=== PATIENT | male | born 1940 | race Caucasian/White ===

== ENCOUNTER 2017-04-07 20:51 | Inpatient (IN) | payer MEDICARE, OTHER ==
[~2017-04-07] VITALS: Ht 172.7 cm; Wt 95.3 kg
[2017-04-07 21:18] LABS: BASO # 0.1 x10^3/uL (0.0-0.2); BASO % 1 % (0-3); EOS % 1 % (0-3); HEMATOCRIT 44.7 % (39.0-53.0); HEMOGLOBIN 15.2 g/dL (13.0-17.5); LYMPH % 24 % (24-48); MEAN CORPUSCULAR HEMOGLOBIN 32 pg (25-35); MEAN CORPUSCULAR HGB CONC 34 g/dL (31-37); MEAN CORPUSCULAR VOLUME 95 fL (79-100); MONO % 6 % (0-9); NEUT % 68 % (31-73); PLATELET COUNT 251 x10^3/uL (140-400); RED BLOOD COUNT 4.69 x10^6/uL (4.30-5.70); RED CELL DISTRIBUTION WIDTH 13.6 % (11.5-14.5); WHITE BLOOD COUNT 8.7 x10^3/uL (4.0-11.0)
[2017-04-07 21:27] LABS: PROTHROMBIN TIME PATIENT 12.1 SEC (11.7-14.0)
[2017-04-07 21:30] LABS: CALCIUM 9.2 mg/dL (8.5-10.1); CREATININE 1.2 mg/dL (0.7-1.3); GFR 58.7; POTASSIUM 3.8 mmol/L (3.5-5.1)
[2017-04-07 21:36] LABS: ALBUMIN 3.7 g/dL (3.4-5.0); ALBUMIN/GLOBULIN RATIO 1.1 (1.0-1.7); TOTAL BILIRUBIN 0.4 mg/dL (0.2-1.0); TOTAL PROTEIN 7.2 g/dL (6.4-8.2)
[2017-04-07] MEDS: IV NORMAL SALINE 1000ML BAG 1,000 ML IV SCH (23:00)
[2017-04-07] MEDS ORDERED: ONDANSETRON PF 4 MG/2 ML VIAL. IV PRN (23:00)
[2017-04-07] MEDS ORDERED: PEG 3350/NA SULF,BICARB,CL/KCL 4,000 ML SOLUTION. PO ONE (23:15)
--- NOTE | 2017-04-07 23:36 | PHYS DOC ---
Past Medical History Past Medical History: Cancer, High Cholesterol, Hypertension Past Surgical History: Other Additional Past Surgical Histo: RADICAL PROSTATECTOMY 2007; HEMORROIDECTOMY X3 ; COLONOSCOPY 6 YEARS AGO Additional Information: DAILY BEER AND SHOT OF [place] Drug Use: None Adult General Chief Complaint Chief Complaint: RECTAL BLEED HPI HPI Patient is a 76 year old with remote history of prostate cancer with radical prostatectomy who presents with concern for rectal mass and rectal bleeding. Patient states he has had difficulty with bowel movements and constipation which is been progressive over the past 2 months. He was seen at [facility] and had plain films performed. 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 Patient is not on any blood thinners. He denies nausea, vomiting and abdominal pain at this time. Denies dizziness, lightheadedness. No fever chills or sweats or unexplained weight loss. No other acute symptoms or complaints. Last had a colonoscopy 2 years ago which he reports was normal. [] Review of Systems Review of Systems Review symptoms as per history of present illness. All other review symptoms are negative.[] All other systems were reviewed and found to be within normal limits, except as documented in this note. Current Medications Current Medications Current Medications Medications (Trade) Dose Ordered Sig/Ema Start Time Stop Time Status Last Admin Dose Admin Ondansetron HCl (Zofran) 4 mg PRN Q8HRS PRN 04/07/17 23:00 04/08/17 22:59 Sodium Chloride 1,000 ml @ 150 mls/hr Q6H40M 04/07/17 23:00 04/08/17 22:59 Sodium Cl/Sod Bicarb/Potass Cl/ PEG (Golytely) 4,000 ml 1X ONCE 04/07/17 23:15 04/07/17 23:16 DC Allergies Allergies Allergies Coded Allergies Type Severity Reaction Last Updated Verified No Known Drug Allergies 04/07/17 No Physical Exam Physical Exam Constitutional: Well developed, well nourished, no acute distress, non-toxic appearance. [] HENT: Normocephalic, atraumatic, bilateral external ears normal, oropharynx moist, no oral exudates, nose normal. [] Eyes: PERRLA, EOMI, conjunctiva normal, no discharge. [] Neck: Normal range of motion, no tenderness, supple, no stridor. [] Cardiovascular:Heart rate regular rhythm, no murmur [] Lungs & Thorax: Bilateral breath sounds clear to auscultation [] Abdomen: Bowel sounds normal, soft, no tenderness, no masses, no pulsatile masses. [] Rectal: Posterior rectal mass with light dark read bleeding on exam.[] Back: No tenderness. [] Extremities: No tenderness. [] Neurologic: Alert and oriented X 3, normal motor function, normal sensory function, no focal deficits noted. [] Psychologic: Affect normal, judgement normal, mood normal. [] Current Patient Data Vital Signs Vital Signs Date Time Temp Pulse Resp B/P (MAP) Pulse Ox O2 Delivery O2 Flow Rate FiO2 04/07/17 21:05 98.2 89 23 165/82 (109) 96 Room Air 98.2 Lab Values Laboratory Tests Test 04/07/17 21:10 White Blood Count 8.7 x10^3/uL (4.0-11.0) Red Blood Count 4.69 x10^6/uL (4.30-5.70) Hemoglobin 15.2 g/dL (13.0-17.5) Hematocrit 44.7 % (39.0-53.0) Mean Corpuscular Volume 95 fL (79-100) Mean Corpuscular Hemoglobin 32 pg (25-35) Mean Corpuscular Hemoglobin Concent 34 g/dL (31-37) Red Cell Distribution Width 13.6 % (11.5-14.5) Platelet Count 251 x10^3/uL (140-400) Neutrophils (%) (Auto) 68 % (31-73) Lymphocytes (%) (Auto) 24 % (24-48) Monocytes (%) (Auto) 6 % (0-9) Eosinophils (%) (Auto) 1 % (0-3) Basophils (%) (Auto) 1 % (0-3) Neutrophils # (Auto) 5.9 x10^3uL (1.8-7.7) Lymphocytes # (Auto) 2.0 x10^3/uL (1.0-4.8) Monocytes # (Auto) 0.5 x10^3/uL (0.0-1.1) Eosinophils # (Auto) 0.1 x10^3/uL (0.0-0.7) Basophils # (Auto) 0.1 x10^3/uL (0.0-0.2) Prothrombin Time 12.1 SEC (11.7-14.0) Prothrombin Time INR 1.0 (0.8-1.1) Sodium Level 141 mmol/L (136-145) Potassium Level 3.8 mmol/L (3.5-5.1) Chloride Level 105 mmol/L (98-107) Carbon Dioxide Level 27 mmol/L (21-32) Anion Gap 9 (6-14) Blood Urea Nitrogen 24 mg/dL (8-26) Creatinine 1.2 mg/dL (0.7-1.3) Estimated GFR (Cockcroft-Gault) 58.7 BUN/Creatinine Ratio 20 (6-20) Glucose Level 146 mg/dL (70-99) H Calcium Level 9.2 mg/dL (8.5-10.1) Total Bilirubin 0.4 mg/dL (0.2-1.0) Aspartate Amino Transferase (AST) 31 U/L (15-37) Alanine Aminotransferase (ALT) 45 U/L (16-63) Alkaline Phosphatase 59 U/L (46-116) Total Protein 7.2 g/dL (6.4-8.2) Albumin 3.7 g/dL (3.4-5.0) Albumin/Globulin Ratio 1.1 (1.0-1.7) Laboratory Tests 04/07/17 21:10 Laboratory Tests 04/07/17 21:10 EKG EKG [] Radiology/Procedures Radiology/Procedures [] Course & Med Decision Making Course & Med Decision Making Pertinent Labs and Imaging studies reviewed. (See chart for details) [Concern for rectal mass with rectal bleeding. Dr. Levi to see in consult for colonoscopy tomorrow. Dr. Patricia to admit] [place] Disclaimer Dragon Disclaimer This electronic medical record was generated, in whole or in part, using a voice recognition dictation system. Departure Departure Impression: Primary Impression: Rectal bleeding Additional Impression: Rectal mass Disposition: ADMITTED INPATIENT Admitting Physician: Other (Dr. Patricia) Condition: STABLE Referrals: PABLO NULL MD (PCP) Problem Qualifiers ELBAYURY AREVALO Apr 07, 2017 23:36
[2017-04-08] VITALS (8 sets, daily range): BP systolic 130–172; BP diastolic 71–89
[2017-04-08] MEDS ORDERED: ASPI-630 PO (01:12)
[2017-04-08] MEDS ORDERED: ACET325T9 PO (01:12)
[2017-04-08] MEDS ORDERED: SIMV20TA3 PO (01:12)
[2017-04-08] MEDS ORDERED: POLY17PO29 PO (01:12)
[2017-04-08] MEDS ORDERED: MULT1TAB52 PO (01:12)
[2017-04-08] MEDS ORDERED: DOXA2TAB2 PO (01:12)
[2017-04-08] MEDS ORDERED: POTA10TA11 PO (01:12)
[2017-04-08] MEDS ORDERED: NIFE60TA14 PO (01:12)
[2017-04-08] MEDS ORDERED: LISI1TAB7 PO (01:12)
[2017-04-08] MEDS: IV NORMAL SALINE 1000ML BAG 1,000 ML IV SCH ×3 (05:40→20:44)
--- NOTE | 2017-04-08 09:06 | PDOC2 ---
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 Change in bowel habits x 1 month, incomplete emptying. Was seen at , reports abd x-ray showed stool. Tried Metamucil, stool softeners, and Miralax - passing soft stools. Last night felt like he had a ball of stool caught, asked his to check, she felt a clump of tissue that started bleeding. ER notes indicate similar exam. ER physician d/w Dr. Duran last night, has completed [facility] prep for colonoscopy today. Passed stool, now only blood w/ prep. No n/v, change in appetite, GERD, weight loss, or melena. Perhaps a little bloated. EGD years ago, colonoscopy (recalls as normal) ~6 years ago here. H/ o prostate cancer s/p prostatectomy, also hemorrhoidectomy x 3. No GB, liver, or pancreas history. Labs okay except glucose 146 (no h/o DM). No imaging. PMH: PMH: HTN, HLD, prostate cancer s/p prostatectomy, hemorrhoidectomy FH: Family History: Cancer (father - testicular) Social History: Smoke: Quit ALCOHOL: other (daily beer + shot) Drugs: None ROS: GEN: Denies fevers, chills, sweats HEENT: Denies blurred vision, sore throat CV: Denies chest pain RESP: Denies shortness of air, cough GI: Per HPI : Denies hematuria, dysuria ENDO: Denies weight changes NEURO: Denies confusion, dizziness MSK: Denies weakness, joint pain/swelling SKIN: Denies jaundice, pruritus Vitals: Vitals: Vital Signs Date Time Temp Pulse Resp B/P (MAP) Pulse Ox O2 Delivery O2 Flow Rate FiO2 04/08/17 03:00 97.7 89 18 130/72 (91) 97 Room Air 97.7 Labs: Labs: Laboratory Tests Test 04/07/17 21:10 White Blood Count 8.7 x10^3/uL (4.0-11.0) Red Blood Count 4.69 x10^6/uL (4.30-5.70) Hemoglobin 15.2 g/dL (13.0-17.5) Hematocrit 44.7 % (39.0-53.0) Mean Corpuscular Volume 95 fL (79-100) Mean Corpuscular Hemoglobin 32 pg (25-35) Mean Corpuscular Hemoglobin Concent 34 g/dL (31-37) Red Cell Distribution Width 13.6 % (11.5-14.5) Platelet Count 251 x10^3/uL (140-400) Neutrophils (%) (Auto) 68 % (31-73) Lymphocytes (%) (Auto) 24 % (24-48) Monocytes (%) (Auto) 6 % (0-9) Eosinophils (%) (Auto) 1 % (0-3) Basophils (%) (Auto) 1 % (0-3) Neutrophils # (Auto) 5.9 x10^3uL (1.8-7.7) Lymphocytes # (Auto) 2.0 x10^3/uL (1.0-4.8) Monocytes # (Auto) 0.5 x10^3/uL (0.0-1.1) Eosinophils # (Auto) 0.1 x10^3/uL (0.0-0.7) Basophils # (Auto) 0.1 x10^3/uL (0.0-0.2) Prothrombin Time 12.1 SEC (11.7-14.0) Prothromb Time International Ratio 1.0 (0.8-1.1) Sodium Level 141 mmol/L (136-145) Potassium Level 3.8 mmol/L (3.5-5.1) Chloride Level 105 mmol/L (98-107) Carbon Dioxide Level 27 mmol/L (21-32) Anion Gap 9 (6-14) Blood Urea Nitrogen 24 mg/dL (8-26) Creatinine 1.2 mg/dL (0.7-1.3) Estimated GFR (Cockcroft-Gault) 58.7 BUN/Creatinine Ratio 20 (6-20) Glucose Level 146 mg/dL (70-99) Calcium Level 9.2 mg/dL (8.5-10.1) Total Bilirubin 0.4 mg/dL (0.2-1.0) Aspartate Amino Transf (AST/SGOT) 31 U/L (15-37) Alanine Aminotransferase (ALT/SGPT) 45 U/L (16-63) Alkaline Phosphatase 59 U/L (46-116) Total Protein 7.2 g/dL (6.4-8.2) Albumin 3.7 g/dL (3.4-5.0) Albumin/Globulin Ratio 1.1 (1.0-1.7) Allergies: Coded Allergies: No Known Drug Allergies (Unverified , 04/07/17) Medications: Current Medications Medications (Trade) Dose Ordered Sig/Ema Route PRN Reason Start Time Stop Time Status Last Admin Dose Admin Sodium Chloride 1,000 ml @ 150 mls/hr Q6H40M IV 04/07/17 23:00 04/08/17 22:59 04/08/17 05:40 Sodium Cl/Sod Bicarb/Potass Cl/ PEG (Golytely) 4,000 ml 1X ONCE PO 04/07/17 23:15 04/07/17 23:16 DC 04/08/17 00:53 Imaging: Imaging: - PE: GEN: NAD HEENT: Atraumatic, PERRL LUNGS: CTAB HEART: RRR ABD: NABS, S/ND/NT EXTREMITY: No edema SKIN: No rashes, no jaundice NEURO/PSYCH: A & O 3 A/P: A/P: Rectal mass and bleeding -felt by pt's and ER physician Change in bowel habits -onset 1 month ago, feeling of incomplete evacuation CRC screen -reports normal colonoscopy 6 years ago H/o prostate cancer -- Has completed GoLytely prep. Keep NPO for colonoscopy this afternoon. D/w GI lab. GUNNAR AMOR Apr 08, 2017 09:06
[2017-04-08] MEDS ORDERED: IV RINGERS,LACTATED 1000ML 1,000 ML IV SCH (12:58)
[2017-04-08] MEDS ORDERED: fentaNYL PF VIAL 100 MCG/2 ML VIAL IV PRN ×2 (13:00)
[2017-04-08] MEDS ORDERED: LIDOCAINE 1% PF 2 ML VIAL. ID PRN (13:00)
[2017-04-08] MEDS ORDERED: MIDAZOLAM HCL/PF 2 MG/2 ML VIAL. IV PRN (13:00)
[2017-04-08] MEDS ORDERED: PROPOFOL 20 ML IV ONE (13:03)
[2017-04-08] MEDS ORDERED: LIDOCAINE 2% PF Vial for OR 5 ML VIAL. ONE (13:03)
--- NOTE | 2017-04-08 13:38 | PDOC4 ---
Operative Note Operative Note Colonoscopy with biopsies Meds propofol per anesthesia Pre-op dx rectal bleeding/palpable mass' post-op dx internal hemorrhoids rectal mass s/p bx within 2 cm anal verge sigmoid diverticulosis Plan surgery/oncology consults ct abd/pelvis for staging CEA level EBONY CHÁVEZ MD Apr 08, 2017 13:38
[2017-04-08] MEDS ORDERED: IOHEXOL 240 MG/ML 50ML VIAL. PO ONE (14:45)
[2017-04-08] MEDS ORDERED: IOHEXOL 300 MG/ML 100ML VIAL. IV ONE (14:45)
--- NOTE | 2017-04-08 16:33 | PDOC1 ---
History and Physical Date of Admission Date of Admission DATE: 04/08/17 TIME: 16:33 History of Present Illness History of Present Illness Chief Complaint: RECTAL BLEED HPI HPI 76 year old with remote history of prostate cancer with radical prostatectomy who presents with rectal mass and rectal bleeding. Patient states he has had difficulty with bowel movements and constipation which is been progressive over the past 2 months. 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 Review of Systems Review of Systems 14 pt ros symptoms as per history of present illness. All other review symptoms are negative.[] All other systems were reviewed and found to be within normal limits, except as documented in this note. PMH: PMH: HTN, HLD, prostate cancer s/p prostatectomy, hemorrhoidectomy FH: Family History: Cancer (father - testicular) Social History: Smoke: Quit ALCOHOL: other (daily beer + shot) Drugs: None ROS: GEN: Denies fevers, chills, sweats HEENT: Denies blurred vision, sore throat CV: Denies chest pain RESP: Denies shortness of air, cough GI: Per HPI : Denies hematuria, dysuria ENDO: Denies weight changes NEURO: Denies confusion, dizziness MSK: Denies weakness, joint pain/swelling SKIN: Denies jaundice, pruritus Vitals: Vitals: Vital Signs Date Time Temp Pulse Resp B/P (MAP) Pulse Ox O2 Delivery O2 Flow Rate FiO2 04/08/17 03:00 97.7 89 18 130/72 (91) 97 Room Air 97.7 Social History Smoke: Quit ALCOHOL: other (daily beer + shot) Drugs: None Current Problem List Problem List Problems Medical Problems: (1) Rectal bleeding Status: Acute (2) Rectal mass Status: Acute Problems: Current Medications Current Medications Current Medications Ondansetron HCl (Zofran) 4 mg PRN Q8HRS PRN IV NAUSEA/VOMITING; Start at 23:00; Stop 04/08/17 at 22:59 Sodium Chloride 1,000 ml @ 150 mls/hr Q6H40M IV Last administered on t 09:02; Start 04/07/17 at 23:00; Stop 04/08/17 at 22:59 Sodium Cl/Sod Bicarb/Potass Cl/ PEG (Golytely) 4,000 ml 1X ONCE PO Last administered on 04/08/17 00:53; Start 04/07/17 at 23:15; Stop 04/07/17 at 23 :16; Status DC Midazolam HCl (Versed) 2 mg PRN 1X PRN IV PRIOR TO PROCEDURE; Start 04/08/17 at 13:00; Stop 04/08/17 at 18:00 Fentanyl Citrate (Fentanyl 2ml Vial) 25 mcg PRN Q5MIN PRN IV X 2 DOSES FOR PAIN ; Start 04/08/17 at 13:00; Stop 04/08/17 at 18:00 Fentanyl Citrate (Fentanyl 2ml Vial) 50 mcg PRN Q5MIN PRN IV X 2 DOSES FOR PAIN ; Start 04/08/17 at 13:00; Stop 04/08/17 at 18:00 Ringer's Solution 1,000 ml @ 125 mls/hr Q8H IV Last administered on 13:00; Start 04/08/17 at 12:58; Stop 04/09/17 at 00:57 Lidocaine HCl (Xylocaine-Mpf 1% Vial) 2 ml 1X PRN PRN ID IV START; Start 04/08 at 13:00; Stop 04/08/17 at 18:00 Propofol 20 ml @ As Directed STK-MED ONCE IV ; Start 04/08/17 at 13:03; Stop 04/08/17 at 13:04; Status DC Lidocaine HCl (Lidocaine Pf 2% Vial) 5 ml STK-MED ONCE .ROUTE ; Start 04/08/17 at 13:03; Stop 04/08/17 at 13:04; Status DC Iohexol (Omnipaque 300 Mg/ml) 60 ml 1X ONCE IV Last administered on 16:00; Start 04/08/17 at 14:45; Stop 04/08/17 at 14:49; Status DC Iohexol (Omnipaque 240 Mg/ml) 30 ml 1X ONCE PO ; Start 04/08/17 at 14:45; Stop 04/08/17 at 14:49; Status DC Active Scripts Active Reported Miralax (Polyethylene Glycol 3350) 17 Gm Powd.pack 1 Packet PO DAILY Tylenol (Acetaminophen) 325 Mg Tablet 500 Mg PO PRN Multivitamins (Multivitamin) 1 Each Tablet 1 Tab PO DAILY Aspirin 81 Mg Tab.chew 1 Tab PO DAILY Potassium Chloride 10 Meq Tablet.er 20 Meq PO Doxazosin Mesylate 2 Mg Tablet 1 Mg PO HS Simvastatin 20 Mg Tablet 1 Tab PO QHS Lisinopril-Hctz 20-25 Mg Tab (Lisinopril/Hydrochlorothiazide) 1 Each Tablet 2 Tab PO DAILY Nifedipine Er (Nifedipine) 60 Mg Tablet.er 90 Mg PO DAILY Allergies Allergies: Coded Allergies: No Known Drug Allergies (Unverified , 04/08/17) Vitals Vitals Vital Signs Date Time Temp Pulse Resp B/P (MAP) Pulse Ox O2 Delivery O2 Flow Rate FiO2 04/08/17 15:00 98.8 63 18 172/89 (116) 96 Room Air 98.8 04/08/17 13:35 3 Labs Labs SEX: M EXAM STATUS: ADM IN ORD. PHYSICIAN: JACOB DE MD REASON: staging rectal cancer PROCEDURE: CT CHEST ABD PELVIS W/CONTRAST CT of the chest, abdomen and pelvis with contrast, 04/08/2017: History: Staging rectal cancer Multidetector CT imaging was performed following oral and IV administration of contrast. There is mild calcific plaquing of the thoracic aorta without evidence of aneurysm. There are calcified mediastinal nodes due to old granulomatous disease. No mediastinal or hilar adenopathy is seen. There is mild bibasilar linear atelectasis and/or scarring. There are several tiny nodules in the lung. These include a 3-4 mm subpleural opacity in the lateral aspect of the left upper lobe as seen on image 24 series #2. This density is somewhat elongated and may be a scar. There is a 3 mm nodule in the posterior aspect of the left lower lobe as seen on image 45 of series #2. There is a 3 mm nodule in the inferior aspect of the right upper lobe as seen on image 31 of series #2. A calcified granuloma is present medially in the right lower lobe. There are 2 moderate-sized cysts in the left lobe of the liver. Numerous partially calcified gallstones are present. The pancreas is unremarkable. The spleen is of normal size. No significant renal abnormality is detected. The adrenal glands are unremarkable. There is minimal aortoiliac calcific plaquing. No retroperitoneal or mesenteric adenopathy is seen. The prostate gland appears to be surgically absent. The rectum is not opacified or well distended. There does appear to be rectal mural thickening posteriorly and laterally. There is a 1 cm nodular opacity in the perirectal fat on the right as seen on image 81 of series #4 raising the possibility of a pathologically enlarged perirectal node. The bowel loops are not dilated. No free air or free fluid is evident in the abdomen or pelvis. Moderate multilevel degenerative changes are present in the spine. IMPRESSION: 1. Rectal mural thickening compatible with the history of rectal malignancy. 2. Small right perirectal nodule raising the possibility of a chip metastasis. 3. Tiny bilateral pulmonary nodules are likely granulomas and/or scars, although metastatic disease cannot be excluded. 4. Cholelithiasis. 5. Liver cysts. 6. Mild bibasilar atelectasis and/or scarring. Laboratory Tests Test 04/07/17 21:10 White Blood Count 8.7 x10^3/uL (4.0-11.0) Red Blood Count 4.69 x10^6/uL (4.30-5.70) Hemoglobin 15.2 g/dL (13.0-17.5) Hematocrit 44.7 % (39.0-53.0) Mean Corpuscular Volume 95 fL (79-100) Mean Corpuscular Hemoglobin 32 pg (25-35) Mean Corpuscular Hemoglobin Concent 34 g/dL (31-37) Red Cell Distribution Width 13.6 % (11.5-14.5) Platelet Count 251 x10^3/uL (140-400) Neutrophils (%) (Auto) 68 % (31-73) Lymphocytes (%) (Auto) 24 % (24-48) Monocytes (%) (Auto) 6 % (0-9) Eosinophils (%) (Auto) 1 % (0-3) Basophils (%) (Auto) 1 % (0-3) Neutrophils # (Auto) 5.9 x10^3uL (1.8-7.7) Lymphocytes # (Auto) 2.0 x10^3/uL (1.0-4.8) Monocytes # (Auto) 0.5 x10^3/uL (0.0-1.1) Eosinophils # (Auto) 0.1 x10^3/uL (0.0-0.7) Basophils # (Auto) 0.1 x10^3/uL (0.0-0.2) Prothrombin Time 12.1 SEC (11.7-14.0) Prothromb Time International Ratio 1.0 (0.8-1.1) Sodium Level 141 mmol/L (136-145) Potassium Level 3.8 mmol/L (3.5-5.1) Chloride Level 105 mmol/L (98-107) Carbon Dioxide Level 27 mmol/L (21-32) Anion Gap 9 (6-14) Blood Urea Nitrogen 24 mg/dL (8-26) Creatinine 1.2 mg/dL (0.7-1.3) Estimated GFR (Cockcroft-Gault) 58.7 BUN/Creatinine Ratio 20 (6-20) Glucose Level 146 mg/dL (70-99) Calcium Level 9.2 mg/dL (8.5-10.1) Total Bilirubin 0.4 mg/dL (0.2-1.0) Aspartate Amino Transf (AST/SGOT) 31 U/L (15-37) Alanine Aminotransferase (ALT/SGPT) 45 U/L (16-63) Alkaline Phosphatase 59 U/L (46-116) Total Protein 7.2 g/dL (6.4-8.2) Albumin 3.7 g/dL (3.4-5.0) Albumin/Globulin Ratio 1.1 (1.0-1.7) Laboratory Tests Test 04/07/17 21:10 White Blood Count 8.7 x10^3/uL (4.0-11.0) Red Blood Count 4.69 x10^6/uL (4.30-5.70) Hemoglobin 15.2 g/dL (13.0-17.5) Hematocrit 44.7 % (39.0-53.0) Mean Corpuscular Volume 95 fL (79-100) Mean Corpuscular Hemoglobin 32 pg (25-35) Mean Corpuscular Hemoglobin Concent 34 g/dL (31-37) Red Cell Distribution Width 13.6 % (11.5-14.5) Platelet Count 251 x10^3/uL (140-400) Neutrophils (%) (Auto) 68 % (31-73) Lymphocytes (%) (Auto) 24 % (24-48) Monocytes (%) (Auto) 6 % (0-9) Eosinophils (%) (Auto) 1 % (0-3) Basophils (%) (Auto) 1 % (0-3) Neutrophils # (Auto) 5.9 x10^3uL (1.8-7.7) Lymphocytes # (Auto) 2.0 x10^3/uL (1.0-4.8) Monocytes # (Auto) 0.5 x10^3/uL (0.0-1.1) Eosinophils # (Auto) 0.1 x10^3/uL (0.0-0.7) Basophils # (Auto) 0.1 x10^3/uL (0.0-0.2) Prothrombin Time 12.1 SEC (11.7-14.0) Prothromb Time International Ratio 1.0 (0.8-1.1) Sodium Level 141 mmol/L (136-145) Potassium Level 3.8 mmol/L (3.5-5.1) Chloride Level 105 mmol/L (98-107) Carbon Dioxide Level 27 mmol/L (21-32) Anion Gap 9 (6-14) Blood Urea Nitrogen 24 mg/dL (8-26) Creatinine 1.2 mg/dL (0.7-1.3) Estimated GFR (Cockcroft-Gault) 58.7 BUN/Creatinine Ratio 20 (6-20) Glucose Level 146 mg/dL (70-99) Calcium Level 9.2 mg/dL (8.5-10.1) Total Bilirubin 0.4 mg/dL (0.2-1.0) Aspartate Amino Transf (AST/SGOT) 31 U/L (15-37) Alanine Aminotransferase (ALT/SGPT) 45 U/L (16-63) Alkaline Phosphatase 59 U/L (46-116) Total Protein 7.2 g/dL (6.4-8.2) Albumin 3.7 g/dL (3.4-5.0) Albumin/Globulin Ratio 1.1 (1.0-1.7) VTE Prophylaxis Ordered VTE Prophylaxis Devices: Yes VTE Pharmacological Prophylaxi: No Assessment/Plan Assessment/Plan impression 1. rectal mass concerning for malignancy 2. hypertension plan 1. gen surgery consult 2. ct reviewed 3. SCD'S 4. ONCOLOGY CONSULT Pre-op dx rectal bleeding/palpable mass' post-op dx internal hemorrhoids rectal mass s/p bx within 2 cm anal verge sigmoid diverticulosis surgery/oncology consults ct abd/pelvis for staging CEA level REQUESTED BARBARA PELLETIER MD Apr 08, 2017 16:33
--- NOTE | 2017-04-08 16:49 | RAD ---
CT of the chest, abdomen and pelvis with contrast, 04/08/2017: History: Staging rectal cancer Multidetector CT imaging was performed following oral and IV administration of contrast. There is mild calcific plaquing of the thoracic aorta without evidence of aneurysm. There are calcified mediastinal nodes due to old granulomatous disease. No mediastinal or hilar adenopathy is seen. There is mild bibasilar linear atelectasis and/or scarring. There are several tiny nodules in the lung. These include a 3-4 mm subpleural opacity in the lateral aspect of the left upper lobe as seen on image 24 series #2. This density is somewhat elongated and may be a scar. There is a 3 mm nodule in the posterior aspect of the left lower lobe as seen on image 45 of series #2. There is a 3 mm nodule in the inferior aspect of the right upper lobe as seen on image 31 of series #2. A calcified granuloma is present medially in the right lower lobe. There are 2 moderate-sized cysts in the left lobe of the liver. Numerous partially calcified gallstones are present. The pancreas is unremarkable. The spleen is of normal size. No significant renal abnormality is detected. The adrenal glands are unremarkable. There is minimal aortoiliac calcific plaquing. No retroperitoneal or mesenteric adenopathy is seen. The prostate gland appears to be surgically absent. The rectum is not opacified or well distended. There does appear to be rectal mural thickening posteriorly and laterally. There is a 1 cm nodular opacity in the perirectal fat on the right as seen on image 81 of series #4 raising the possibility of a pathologically enlarged perirectal node. The bowel loops are not dilated. No free air or free fluid is evident in the abdomen or pelvis. Moderate multilevel degenerative changes are present in the spine. IMPRESSION: 1. Rectal mural thickening compatible with the history of rectal malignancy. 2. Small right perirectal nodule raising the possibility of a chip metastasis. 3. Tiny bilateral pulmonary nodules are likely granulomas and/or scars, although metastatic disease cannot be excluded. 4. Cholelithiasis. 5. Liver cysts. 6. Mild bibasilar atelectasis and/or scarring. PQRS Compliance Statement: One or more of the following individualized dose reduction techniques were utilized for this examination: 1. Automated exposure control 2. Adjustment of the mA and/or kV according to patient size 3. Use of iterative reconstruction technique
[2017-04-08] MEDS ORDERED: ACETAMINOPHEN 500 MG TABLET PO PRN (17:15)
--- NOTE | 2017-04-08 17:29 | PDOC ---
Provider Note Provider Note Med Onc consult: 1. Rectal mass s/p bx Consult rad onc/surgery Plan MRI of pelvis for T and N staging. See dictation [id number] JACOB DE MD Apr 08, 2017 17:29
[2017-04-08] MEDS ORDERED: ZOLPIDEM 5 MG TABLET. PO PRN (17:30)
[2017-04-08] MEDS ORDERED: DOXAZOSIN MESYLATE 1 MG TABLET. PO SCH (21:00)
--- NOTE | 2017-04-08 23:21 | CONS ---
DATE OF CONSULTATION: 04/08/2017 REQUESTING PHYSICIAN: Dr. Edy Duran. REASON FOR CONSULTATION: Rectal mass concerning for rectal cancer noted on colonoscopy on 04/08/2017. HISTORY OF PRESENT ILLNESS: The patient is a 76-year-old gentleman who noted changes in the bowel habit since 02/2017 with incomplete emptying. He was seen in urgent care and abdominal x-ray was done which showed stool, but no evidence of obstruction. He tried Metamucil and stool softeners and MiraLax. On 04/07/2017 he felt like he had a ball of stool caught and asked his who is a registered nurse at [facility] to check. His felt a lump of tissue when she did a rectal exam which started bleeding. She also mentions that a piece of tissue did come out at the time of examination. He started bleeding after the examination and hence he went to the Emergency Room at [facility]. He was evaluated in the ER on 04/07/2017 and rectal mass was noted on examination. He was admitted to [facility]. GI consultation was done. He underwent a colonoscopy by Dr. Duran on 04/08/2017, which revealed malignant partially obstructing tumor in the rectum, which was biopsied. There was also evidence of nonbleeding internal hemorrhoids and diverticulosis in the sigmoid colon. His last colonoscopy was in 2010. He also has a history of prostate cancer and he underwent radical prostatectomy by Dr. Marvin Mi in 2006. He has had surveillance visits up until 10/2016 when his PSA continued to stay normal and hence he was released by urology. He denies abdominal pain. No nausea, vomiting. No loss of weight or loss of appetite. No hematemesis, melena or hematochezia except as described above. He underwent a CT scan of the chest, abdomen and pelvis on 04/08/2017, which revealed rectal mural thickening compatible with rectal malignancy. Small right perirectal nodule is noted measuring 1 cm, which raises the possibility of a pathologically enlarged perirectal lymph node. Tiny bilateral pulmonary nodules are thought to be granulomas are scars, although metastatic disease cannot be ruled out. There is evidence of cholelithiasis and liver cysts. PAST MEDICAL HISTORY: Hypertension, hyperlipidemia, prostate cancer status post radical prostatectomy in 2006. History of hemorrhoidectomy x 2 in 1990. FAMILY HISTORY: Father of testicular cancer. SOCIAL HISTORY: He drinks 1 beer every day. No smoking. REVIEW OF SYSTEMS: A 12-point review of system was performed. Pertinent positives are mentioned in the history of present illness. Rest of the system review is negative. PHYSICAL EXAMINATION: GENERAL APPEARANCE: The patient is a 76-year-old gentleman who is well developed, well nourished, and in no acute cardiorespiratory distress. VITAL SIGNS: Blood pressure 172/89, temperature 98.2. HEENT: Head: Atraumatic, normocephalic. Eyes: No icterus. NECK: Supple. CHEST: Bilaterally symmetrical. HEART: S1, S2 normal. ABDOMEN: Soft, nontender. CENTRAL NERVOUS SYSTEM: No focal neurological deficits. LYMPHATICS: No lymphadenopathy. SKIN: No rashes. PSYCHOLOGIC: Mood and affect are appropriate. MUSCULOSKELETAL: No joint effusions. LABORATORY DATA: On 04/07/2017, WBC 8.7, hemoglobin 15.2, platelet count 251. Creatinine 1.2, calcium 9.2, total bilirubin 0.4, AST 31, ALT 45, alkaline phosphatase 59, total protein 7.2, albumin 3.7. IMPRESSION AND PLAN: 1. Rectal mass noted by colonoscopy on 04/08/2017 status post biopsy. I discussed with Dr. Edy Duran and this is clinically consistent with a rectal cancer. He underwent a CT chest, abdomen and pelvis on 04/08/2017 that does not reveal any evidence of distant metastatic disease. Rectal mural thickening and a small right perirectal nodule, raising the possibility of a lymph node metastasis is noted. Tiny pulmonary nodules are suggestive of granulomas or scar tissue. I will obtain MRI of the pelvis for tumor and chip staging. If MRI does not give us adequate information, then he may need endoscopic ultrasound. If we have enough staging information from the MRI, then I would proceed with neoadjuvant chemotherapy with continuous infusion 5-FU along with radiation therapy followed by surgery. I will consult Radiation Oncology, Dr. Joseph and surgery. The patient reports that Dr. Shafer has already been consulted and he will be seeing the patient tomorrow. I discussed the clinical diagnosis and management in detail. I mentioned that we would need histologic confirmation before initiating any treatments. He will also need a Port-A-Cath placement by Dr. Shafer. I will await final pathology results. I discussed with Dr. Patricia and Dr. Edy Duran. 2. Prostate cancer in 2006, status post radical prostatectomy in [address] Marvin Mi. The patient reports that his PSA was normal in 10/2016. No clinical evidence to suggest recurrence. JACOB DE MD DR: ANNITA/domenico JOB#: [id number] / [id number] JORDY
[2017-04-09 03:00] VITALS: BP 158/63
[2017-04-09 07:00] VITALS: BP 163/82
[2017-04-09] MEDS ORDERED: LISINOPRIL 40 MG TABLET. PO SCH (09:00)
[2017-04-09] MEDS ORDERED: MULTIVITAMIN with MINERAL TABLET. PO SCH (09:00)
[2017-04-09] MEDS ORDERED: hydroCHLOROthiazide 25 MG TABLET PO SCH (09:00)
--- NOTE | 2017-04-09 09:02 | PDOC ---
PROGRESS NOTES Subjective Subjective HPI - Rectal cancer (prelim report is adenocarcinoma) - Rectal mass noted by colonoscopy on 04/08/2017 status post biopsy. I discussed with Dr. Edy Duran and this is clinically consistent with a rectal cancer. ROS -has rectal bleed Objective Objective Vital Signs Date Time Temp Pulse Resp B/P (MAP) Pulse Ox O2 Delivery O2 Flow Rate FiO2 04/09/17 08:48 64 166/83 04/09/17 03:00 98.1 17 95 Room Air 98.1 04/08/17 19:50 3.0 Intake and Output 04/09/17 06:59 Intake Total 4000 ml Balance 4000 ml Intake Oral 540 ml IV Total 3460 ml # Voids 5 # Bowel Movements 5 Physical Exam Heart: Normal S1, Normal S2 General: Alert, Oriented X3 Lungs: Clear to auscultation Neuro: Normal speech Psych/Mental Status: Mental status NL Assessment Assessment Problems Medical Problems: (1) Rectal bleeding Status: Acute (2) Rectal mass Status: Acute IMPRESSION AND PLAN: 1. Rectal cancer (prelim report is adenocarcinoma) - Rectal mass noted by colonoscopy on 04/08/2017 status post biopsy. I discussed with Dr. Edy Duran and this is clinically consistent with a rectal cancer. He underwent a CT chest, abdomen and pelvis on 04/08/2017 that does not reveal any evidence of distant metastatic disease. Rectal mural thickening and a small right perirectal nodule, raising the possibility of a lymph node metastasis is noted. Tiny pulmonary nodules are suggestive of granulomas or scar tissue. I will obtain MRI of the pelvis for tumor and chip staging. If MRI does not give us adequate information, then he may need endoscopic ultrasound. If we have enough staging information from the MRI, then I would proceed with neoadjuvant chemotherapy with continuous infusion 5-FU along with radiation therapy followed by surgery. I will consult Radiation Oncology, Dr. Joseph and surgery. Consult Dr. Shafer. He will also need a Port-A-Cath placement by Dr. Shafer. I will await final pathology results. I d/w pathologist. 2. Prostate cancer in 2006, status post radical prostatectomy [place] [address] Marvin Mi. The patient reports that his PSA was normal in 10/2016. No clinical evidence to suggest recurrence. Comment Review of Relevant I have reviewed the following items diane (where applicable) has been applied. Labs Laboratory Tests Test 04/07/17 21:10 White Blood Count 8.7 x10^3/uL (4.0-11.0) Red Blood Count 4.69 x10^6/uL (4.30-5.70) Hemoglobin 15.2 g/dL (13.0-17.5) Hematocrit 44.7 % (39.0-53.0) Mean Corpuscular Volume 95 fL (79-100) Mean Corpuscular Hemoglobin 32 pg (25-35) Mean Corpuscular Hemoglobin Concent 34 g/dL (31-37) Red Cell Distribution Width 13.6 % (11.5-14.5) Platelet Count 251 x10^3/uL (140-400) Neutrophils (%) (Auto) 68 % (31-73) Lymphocytes (%) (Auto) 24 % (24-48) Monocytes (%) (Auto) 6 % (0-9) Eosinophils (%) (Auto) 1 % (0-3) Basophils (%) (Auto) 1 % (0-3) Neutrophils # (Auto) 5.9 x10^3uL (1.8-7.7) Lymphocytes # (Auto) 2.0 x10^3/uL (1.0-4.8) Monocytes # (Auto) 0.5 x10^3/uL (0.0-1.1) Eosinophils # (Auto) 0.1 x10^3/uL (0.0-0.7) Basophils # (Auto) 0.1 x10^3/uL (0.0-0.2) Prothrombin Time 12.1 SEC (11.7-14.0) Prothromb Time International Ratio 1.0 (0.8-1.1) Sodium Level 141 mmol/L (136-145) Potassium Level 3.8 mmol/L (3.5-5.1) Chloride Level 105 mmol/L (98-107) Carbon Dioxide Level 27 mmol/L (21-32) Anion Gap 9 (6-14) Blood Urea Nitrogen 24 mg/dL (8-26) Creatinine 1.2 mg/dL (0.7-1.3) Estimated GFR (Cockcroft-Gault) 58.7 BUN/Creatinine Ratio 20 (6-20) Glucose Level 146 mg/dL (70-99) Calcium Level 9.2 mg/dL (8.5-10.1) Total Bilirubin 0.4 mg/dL (0.2-1.0) Aspartate Amino Transf (AST/SGOT) 31 U/L (15-37) Alanine Aminotransferase (ALT/SGPT) 45 U/L (16-63) Alkaline Phosphatase 59 U/L (46-116) Total Protein 7.2 g/dL (6.4-8.2) Albumin 3.7 g/dL (3.4-5.0) Albumin/Globulin Ratio 1.1 (1.0-1.7) Medications Current Medications Ondansetron HCl (Zofran) 4 mg PRN Q8HRS PRN IV NAUSEA/VOMITING; Start at 23:00; Stop 04/08/17 at 22:59; Status DC Sodium Chloride 1,000 ml @ 50 mls/hr Q20H IV Last administered on 04/08/17 20:44; Start 04/07/17 at 23:00; Stop 04/08/17 at 22:59; Status DC Sodium Cl/Sod Bicarb/Potass Cl/ PEG (Golytely) 4,000 ml 1X ONCE PO Last administered on 04/08/17 00:53; Start 04/07/17 at 23:15; Stop 04/07/17 at 23 :16; Status DC Midazolam HCl (Versed) 2 mg PRN 1X PRN IV PRIOR TO PROCEDURE; Start 04/08/17 at 13:00; Stop 04/08/17 at 18:00; Status DC Fentanyl Citrate (Fentanyl 2ml Vial) 25 mcg PRN Q5MIN PRN IV X 2 DOSES FOR PAIN ; Start 04/08/17 at 13:00; Stop 04/08/17 at 18:00; Status DC Fentanyl Citrate (Fentanyl 2ml Vial) 50 mcg PRN Q5MIN PRN IV X 2 DOSES FOR PAIN ; Start 04/08/17 at 13:00; Stop 04/08/17 at 18:00; Status DC Ringer's Solution 1,000 ml @ 125 mls/hr Q8H IV Last administered on 13:00; Start 04/08/17 at 12:58; Stop 04/08/17 at 16:53; Status DC Lidocaine HCl (Xylocaine-Mpf 1% Vial) 2 ml 1X PRN PRN ID IV START; Start 04/08 at 13:00; Stop 04/08/17 at 18:00; Status DC Propofol 20 ml @ As Directed STK-MED ONCE IV ; Start 04/08/17 at 13:03; Stop 04/08/17 at 13:04; Status DC Lidocaine HCl (Lidocaine Pf 2% Vial) 5 ml STK-MED ONCE .ROUTE ; Start 04/08/17 at 13:03; Stop 04/08/17 at 13:04; Status DC Iohexol (Omnipaque 300 Mg/ml) 60 ml 1X ONCE IV Last administered on 16:00; Start 04/08/17 at 14:45; Stop 04/08/17 at 14:49; Status DC Iohexol (Omnipaque 240 Mg/ml) 30 ml 1X ONCE PO ; Start 04/08/17 at 14:45; Stop 04/08/17 at 14:49; Status DC Acetaminophen (Tylenol) 500 mg PRN Q8HRS PRN PO PAIN; Start 04/08/17 at 17:15 Doxazosin Mesylate (Cardura) 1 mg QHS PO Last administered on 04/08/17 20:44 ; Start 04/08/17 at 21:00 Lisinopril (Prinivil) 40 mg DAILY PO Last administered on 04/09/17 08:47; Start 04/09/17 at 09:00 Multivitamins (Thera M Plus) 1 tab DAILY PO Last administered on 04/09/17 08: 47; Start 04/09/17 at 09:00 Nifedipine (Procardia Xl) 90 mg DAILY PO Last administered on 04/09/17 08:48 ; Start 04/09/17 at 09:00 Hydrochlorothiazide (Hydrodiuril) 50 mg DAILY PO Last administered on 08:47; Start 04/09/17 at 09:00 Zolpidem Tartrate (Ambien) 5 mg PRN QHS PRN PO INSOMNIA Last administered on 20:44; Start 04/08/17 at 17:30 Active Scripts Active Reported Miralax (Polyethylene Glycol 3350) 17 Gm Powd.pack 1 Packet PO DAILY Tylenol (Acetaminophen) 325 Mg Tablet 500 Mg PO PRN Multivitamins (Multivitamin) 1 Each Tablet 1 Tab PO DAILY Aspirin 81 Mg Tab.chew 1 Tab PO DAILY Potassium Chloride 10 Meq Tablet.er 20 Meq PO Doxazosin Mesylate 2 Mg Tablet 1 Mg PO HS Simvastatin 20 Mg Tablet 1 Tab PO QHS Lisinopril-Hctz 20-25 Mg Tab (Lisinopril/Hydrochlorothiazide) 1 Each Tablet 2 Tab PO DAILY Nifedipine Er (Nifedipine) 60 Mg Tablet.er 90 Mg PO DAILY Vitals/I & O Vital Sign - Last 24 Hours 04/08/17 04/08/17 04/08/17 04/08/17 10:43 12:47 13:35 13:50 Temp 99.3 98.4 98.2 99.3 98.4 98.2 Pulse 65 69 69 70 Resp 18 20 20 20 B/P (MAP) 162/80 (107) 159/77 186/95 Pulse Ox 96 98 97 97 O2 Delivery Room Air Nasal Cannula Room Air O2 Flow Rate 3 04/08/17 04/08/17 04/08/17 04/08/17 14:07 14:32 15:00 19:00 Temp 98.4 98.8 98.1 98.4 98.8 98.1 Pulse 72 59 63 62 Resp 20 18 18 18 B/P (MAP) 172/84 172/81 (111) 172/89 (116) 148/71 (96) Pulse Ox 95 96 96 93 O2 Delivery Room Air Room Air Room Air 04/08/17 04/08/17 04/08/17 04/09/17 19:50 20:44 23:00 03:00 Temp 98.1 98.1 98.1 98.1 Pulse 62 53 69 Resp 16 17 B/P (MAP) 148/71 158/85 (109) 158/63 (94) Pulse Ox 94 95 O2 Delivery Room Air Room Air Room Air O2 Flow Rate 3.0 04/09/17 04/09/17 08:47 08:48 Pulse 64 64 B/P (MAP) 166/83 166/83 Intake and Output 04/08/17 04/08/17 04/09/17 14:59 22:59 06:59 Intake Total 2200 ml 1800 ml Balance 2200 ml 1800 ml JACOB DE MD Apr 09, 2017 09:02
[2017-04-09 11:00] VITALS: BP 110/90
[2017-04-09] MEDS ORDERED: DOCU-109 PO (11:18)
--- NOTE | 2017-04-09 11:48 | PDOC2 ---
CHRISTIE MARCANO WELL DRILLER 04/09/17 1148: CONSULT Date of Consult Date of Consult DATE: 04/09/17 TIME: 11:41 Reason for Consult Reason for Consult: rectal mass Referring Physician Referring Physician: Dr Duran Identification/Chief Complaint Chief Complaint constipation Problems: Source Source: Chart review, Patient History of Present Illness Reason for Visit: Bowel habit changes for last month. Laxatives tried and did not help. did a rectal exam and felt a lump and area started bleeding. Came to be evaluated, underwent colonoscopy which showed partially obstructing tumor in rectum. Oncology has seen and plans to start neoadjuvant chemotherapy, radiation consult pending Past Medical History Cardiovascular: HTN, Hyperlipidemia Heme/Onc: Cancer (prostate) Past Surgical History Past Surgical History: Other (prostatectomy, hemorrhoidectomy) Family History Family History: Cancer (testicular in father) Social History Quit ALCOHOL: other (daily beer + shot) Drugs: None Lives: with Family Current Problem List Problem List Problems Medical Problems: (1) Rectal bleeding Status: Acute (2) Rectal mass Status: Acute Current Medications Current Medications Current Medications Ondansetron HCl (Zofran) 4 mg PRN Q8HRS PRN IV NAUSEA/VOMITING; Start at 23:00; Stop 04/08/17 at 22:59; Status DC Sodium Chloride 1,000 ml @ 50 mls/hr Q20H IV Last administered on 04/08/17 20:44; Start 04/07/17 at 23:00; Stop 04/08/17 at 22:59; Status DC Sodium Cl/Sod Bicarb/Potass Cl/ PEG (Golytely) 4,000 ml 1X ONCE PO Last administered on 04/08/17 00:53; Start 04/07/17 at 23:15; Stop 04/07/17 at 23 :16; Status DC Midazolam HCl (Versed) 2 mg PRN 1X PRN IV PRIOR TO PROCEDURE; Start 04/08/17 at 13:00; Stop 04/08/17 at 18:00; Status DC Fentanyl Citrate (Fentanyl 2ml Vial) 25 mcg PRN Q5MIN PRN IV X 2 DOSES FOR PAIN ; Start 04/08/17 at 13:00; Stop 04/08/17 at 18:00; Status DC Fentanyl Citrate (Fentanyl 2ml Vial) 50 mcg PRN Q5MIN PRN IV X 2 DOSES FOR PAIN ; Start 04/08/17 at 13:00; Stop 04/08/17 at 18:00; Status DC Ringer's Solution 1,000 ml @ 125 mls/hr Q8H IV Last administered on 13:00; Start 04/08/17 at 12:58; Stop 04/08/17 at 16:53; Status DC Lidocaine HCl (Xylocaine-Mpf 1% Vial) 2 ml 1X PRN PRN ID IV START; Start 04/08 at 13:00; Stop 04/08/17 at 18:00; Status DC Propofol 20 ml @ As Directed STK-MED ONCE IV ; Start 04/08/17 at 13:03; Stop 04/08/17 at 13:04; Status DC Lidocaine HCl (Lidocaine Pf 2% Vial) 5 ml STK-MED ONCE .ROUTE ; Start 04/08/17 at 13:03; Stop 04/08/17 at 13:04; Status DC Iohexol (Omnipaque 300 Mg/ml) 60 ml 1X ONCE IV Last administered on 16:00; Start 04/08/17 at 14:45; Stop 04/08/17 at 14:49; Status DC Iohexol (Omnipaque 240 Mg/ml) 30 ml 1X ONCE PO ; Start 04/08/17 at 14:45; Stop 04/08/17 at 14:49; Status DC Acetaminophen (Tylenol) 500 mg PRN Q8HRS PRN PO PAIN; Start 04/08/17 at 17:15 Doxazosin Mesylate (Cardura) 1 mg QHS PO Last administered on 04/08/17 20:44 ; Start 04/08/17 at 21:00 Lisinopril (Prinivil) 40 mg DAILY PO Last administered on 04/09/17 08:47; Start 04/09/17 at 09:00 Multivitamins (Thera M Plus) 1 tab DAILY PO Last administered on 04/09/17 08: 47; Start 04/09/17 at 09:00 Nifedipine (Procardia Xl) 90 mg DAILY PO Last administered on 04/09/17 08:48 ; Start 04/09/17 at 09:00 Hydrochlorothiazide (Hydrodiuril) 50 mg DAILY PO Last administered on 08:47; Start 04/09/17 at 09:00 Zolpidem Tartrate (Ambien) 5 mg PRN QHS PRN PO INSOMNIA Last administered on t 20:44; Start 04/08/17 at 17:30 Active Scripts Active Colace (Docusate Sodium) 100 Mg Capsule 100 Mg PO DAILY Reported Miralax (Polyethylene Glycol 3350) 17 Gm Powd.pack 1 Packet PO DAILY Tylenol (Acetaminophen) 325 Mg Tablet 500 Mg PO PRN Multivitamins (Multivitamin) 1 Each Tablet 1 Tab PO DAILY Aspirin 81 Mg Tab.chew 1 Tab PO DAILY Potassium Chloride 10 Meq Tablet.er 20 Meq PO Doxazosin Mesylate 2 Mg Tablet 1 Mg PO HS Simvastatin 20 Mg Tablet 1 Tab PO QHS Lisinopril-Hctz 20-25 Mg Tab (Lisinopril/Hydrochlorothiazide) 1 Each Tablet 2 Tab PO DAILY Nifedipine Er (Nifedipine) 60 Mg Tablet.er 90 Mg PO DAILY Allergies Allergies: Coded Allergies: No Known Drug Allergies (Unverified , 04/08/17) ROS General: No: Chills, Other (fevers) PSYCHOLOGICAL ROS: No: Anxiety, Depression Eyes: No Blurry vision, No Double vision HEENT: No: Heacaches, Sore Throat Hematological and Lymphatic: No: Bleeding Problems, Blood Clots Respiratory: No: Cough, Shortness of breath Cardiovascular: No Chest Pain, No Palpitations Gastrointestinal: Yes Other (seehpi) Genitourinary: No Dysuria, No Hematuria Musculoskeletal: No Joint Pain, No Muscle Pain Neurological: No Impaired Coord/balance, No Numbness/Tingling Skin: No Pruritus, No Rash Physical Exam General: Alert, Oriented X3, Cooperative, No acute distress HEENT: PERRLA, Mucous membr. moist/pink Lungs: Clear to auscultation, Normal air movement Heart: Regular rate, Normal S1, Normal S2, No murmurs Abdomen: Normal bowel sounds, Soft, No tenderness, No hepatosplenomegaly, No masses Extremities: No clubbing, No cyanosis, No edema, Normal pulses, No tenderness/ swelling Skin: No rashes, No breakdown Neuro: Normal gait, Normal speech, Normal tone, Sensation intact, Reflexes 2+ Psych/Mental Status: Mental status NL, Mood NL MUSCULOSKELETAL: No deformity, No swelling Vitals VITALS Vital Signs Date Time Temp Pulse Resp B/P (MAP) Pulse Ox O2 Delivery O2 Flow Rate FiO2 04/09/17 08:48 64 166/83 04/09/17 08:00 Room Air 04/09/17 07:00 98.1 17 96 98.1 04/08/17 19:50 3.0 Labs Labs Laboratory Tests Test 04/07/17 21:10 White Blood Count 8.7 x10^3/uL (4.0-11.0) Red Blood Count 4.69 x10^6/uL (4.30-5.70) Hemoglobin 15.2 g/dL (13.0-17.5) Hematocrit 44.7 % (39.0-53.0) Mean Corpuscular Volume 95 fL (79-100) Mean Corpuscular Hemoglobin 32 pg (25-35) Mean Corpuscular Hemoglobin Concent 34 g/dL (31-37) Red Cell Distribution Width 13.6 % (11.5-14.5) Platelet Count 251 x10^3/uL (140-400) Neutrophils (%) (Auto) 68 % (31-73) Lymphocytes (%) (Auto) 24 % (24-48) Monocytes (%) (Auto) 6 % (0-9) Eosinophils (%) (Auto) 1 % (0-3) Basophils (%) (Auto) 1 % (0-3) Neutrophils # (Auto) 5.9 x10^3uL (1.8-7.7) Lymphocytes # (Auto) 2.0 x10^3/uL (1.0-4.8) Monocytes # (Auto) 0.5 x10^3/uL (0.0-1.1) Eosinophils # (Auto) 0.1 x10^3/uL (0.0-0.7) Basophils # (Auto) 0.1 x10^3/uL (0.0-0.2) Prothrombin Time 12.1 SEC (11.7-14.0) Prothromb Time International Ratio 1.0 (0.8-1.1) Sodium Level 141 mmol/L (136-145) Potassium Level 3.8 mmol/L (3.5-5.1) Chloride Level 105 mmol/L (98-107) Carbon Dioxide Level 27 mmol/L (21-32) Anion Gap 9 (6-14) Blood Urea Nitrogen 24 mg/dL (8-26) Creatinine 1.2 mg/dL (0.7-1.3) Estimated GFR (Cockcroft-Gault) 58.7 BUN/Creatinine Ratio 20 (6-20) Glucose Level 146 mg/dL (70-99) Calcium Level 9.2 mg/dL (8.5-10.1) Total Bilirubin 0.4 mg/dL (0.2-1.0) Aspartate Amino Transf (AST/SGOT) 31 U/L (15-37) Alanine Aminotransferase (ALT/SGPT) 45 U/L (16-63) Alkaline Phosphatase 59 U/L (46-116) Total Protein 7.2 g/dL (6.4-8.2) Albumin 3.7 g/dL (3.4-5.0) Albumin/Globulin Ratio 1.1 (1.0-1.7) Assessment/Plan Assessment/Plan rectal mass--biopsy pending, plans to start neoadjuvant chemo, radiation, surgery once complete RIDGE WATKINS MD 04/09/17 1331: CONSULT Allergies Allergies: Coded Allergies: No Known Drug Allergies (Unverified , 04/08/17) Assessment/Plan Assessment/Plan pt seen and interviewed will need port for chemotherapy will schedule for early next week (to start treatments 04/20) will follow Thanks for consult CHRISTIE MARCANO APRN Apr 09, 2017 11:48 RIDGE WATKINS MD Apr 09, 2017 13:31
--- NOTE | 2017-04-09 13:48 | PATHOLOGY ---
PATHOLOGY REPORT * * * * * * * * FINAL DIAGNOSIS: Colorectal biopsies, rectal mass: - ADENOCARCINOMA, MODERATELY-WELL DIFFERENTIATED. SEE COMMENT. COMMENT: Sections of the rectal mass biopsy focally reveal malignant glands which irregularly infiltrate an inflamed reactive desmoplastic stroma. 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 The case is also examined by Dr. Sauceda, who concurs with the diagnosis. (JPM:pit; 04/09/2017) REPORT ELECTRONICALLY SIGNED BY: Leonides Sood M.D. DATE/TIME: 04/09/2017 13:48 * * * * * * * * GROSS PATHOLOGY: Received in formalin labeled "Bob Talamantes, BX rectal mass," are multiple (more than 10) segments of rodas soft tissue measuring 2.0 x 0.9 x 0.3 cm in aggregate dimensions and ranging from 0.1 to 0.3 cm in maximum dimension. The specimen is submitted entirely in cassette A1. (TSD; 04/08/2017) INITIAL CPT CODE(S): A; 82335 Professional services performed [place] [facility] [address] Technical services performed by [facility] at [address] [place] [address]. SPECIMEN(S) RECEIVED: A.Biopsy rectal mass CLINICAL HISTORY: Constipation, rectal bleeding; rectal mass, diverticulosis PATIENT: BOB TALAMANTES /AGE: 105/14/1940 (Age: 76) PATIENT #: [id number] ALT CASE #: SPECIMEN COLLECTION DATE: 04/08/2017 SPECIMEN RECEIVED DATE: 04/08/2017 [facility] - [address] [place] [address] - PHONE: [phone] * * * END OF REPORT * * *
[2017-04-09 15:00] VITALS: BP 117/87
--- NOTE | 2017-04-09 15:58 | PDOC ---
G I PROGRESS NOTE Reason for Follow-up Rectal bleed Subjective Feeling better Physical Exam Lungs clear CV S1 S2 ABD +BS, soft, nontender Review of Relevant I have reviewed the following items diane (where applicable) has been applied. Labs Laboratory Tests Test 04/07/17 21:10 04/08/17 14:30 White Blood Count 8.7 x10^3/uL (4.0-11.0) Red Blood Count 4.69 x10^6/uL (4.30-5.70) Hemoglobin 15.2 g/dL (13.0-17.5) Hematocrit 44.7 % (39.0-53.0) Mean Corpuscular Volume 95 fL (79-100) Mean Corpuscular Hemoglobin 32 pg (25-35) Mean Corpuscular Hemoglobin Concent 34 g/dL (31-37) Red Cell Distribution Width 13.6 % (11.5-14.5) Platelet Count 251 x10^3/uL (140-400) Neutrophils (%) (Auto) 68 % (31-73) Lymphocytes (%) (Auto) 24 % (24-48) Monocytes (%) (Auto) 6 % (0-9) Eosinophils (%) (Auto) 1 % (0-3) Basophils (%) (Auto) 1 % (0-3) Neutrophils # (Auto) 5.9 x10^3uL (1.8-7.7) Lymphocytes # (Auto) 2.0 x10^3/uL (1.0-4.8) Monocytes # (Auto) 0.5 x10^3/uL (0.0-1.1) Eosinophils # (Auto) 0.1 x10^3/uL (0.0-0.7) Basophils # (Auto) 0.1 x10^3/uL (0.0-0.2) Prothrombin Time 12.1 SEC (11.7-14.0) Prothromb Time International Ratio 1.0 (0.8-1.1) Sodium Level 141 mmol/L (136-145) Potassium Level 3.8 mmol/L (3.5-5.1) Chloride Level 105 mmol/L (98-107) Carbon Dioxide Level 27 mmol/L (21-32) Anion Gap 9 (6-14) Blood Urea Nitrogen 24 mg/dL (8-26) Creatinine 1.2 mg/dL (0.7-1.3) Estimated GFR (Cockcroft-Gault) 58.7 BUN/Creatinine Ratio 20 (6-20) Glucose Level 146 mg/dL (70-99) Calcium Level 9.2 mg/dL (8.5-10.1) Total Bilirubin 0.4 mg/dL (0.2-1.0) Aspartate Amino Transf (AST/SGOT) 31 U/L (15-37) Alanine Aminotransferase (ALT/SGPT) 45 U/L (16-63) Alkaline Phosphatase 59 U/L (46-116) Total Protein 7.2 g/dL (6.4-8.2) Albumin 3.7 g/dL (3.4-5.0) Albumin/Globulin Ratio 1.1 (1.0-1.7) Carcinoembryonic Antigen 3.2 ng/mL (0.0-4.7) Medications Current Medications Ondansetron HCl (Zofran) 4 mg PRN Q8HRS PRN IV NAUSEA/VOMITING; Start at 23:00; Stop 04/08/17 at 22:59; Status DC Sodium Chloride 1,000 ml @ 50 mls/hr Q20H IV Last administered on 04/08/17 20:44; Start 04/07/17 at 23:00; Stop 04/08/17 at 22:59; Status DC Sodium Cl/Sod Bicarb/Potass Cl/ PEG (Golytely) 4,000 ml 1X ONCE PO Last administered on 04/08/17 00:53; Start 04/07/17 at 23:15; Stop 04/07/17 at 23 :16; Status DC Midazolam HCl (Versed) 2 mg PRN 1X PRN IV PRIOR TO PROCEDURE; Start 04/08/17 at 13:00; Stop 04/08/17 at 18:00; Status DC Fentanyl Citrate (Fentanyl 2ml Vial) 25 mcg PRN Q5MIN PRN IV X 2 DOSES FOR PAIN ; Start 04/08/17 at 13:00; Stop 04/08/17 at 18:00; Status DC Fentanyl Citrate (Fentanyl 2ml Vial) 50 mcg PRN Q5MIN PRN IV X 2 DOSES FOR PAIN ; Start 04/08/17 at 13:00; Stop 04/08/17 at 18:00; Status DC Ringer's Solution 1,000 ml @ 125 mls/hr Q8H IV Last administered on 13:00; Start 04/08/17 at 12:58; Stop 04/08/17 at 16:53; Status DC Lidocaine HCl (Xylocaine-Mpf 1% Vial) 2 ml 1X PRN PRN ID IV START; Start 04/08 at 13:00; Stop 04/08/17 at 18:00; Status DC Propofol 20 ml @ As Directed STK-MED ONCE IV ; Start 04/08/17 at 13:03; Stop 04/08/17 at 13:04; Status DC Lidocaine HCl (Lidocaine Pf 2% Vial) 5 ml STK-MED ONCE .ROUTE ; Start 04/08/17 at 13:03; Stop 04/08/17 at 13:04; Status DC Iohexol (Omnipaque 300 Mg/ml) 60 ml 1X ONCE IV Last administered on 16:00; Start 04/08/17 at 14:45; Stop 04/08/17 at 14:49; Status DC Iohexol (Omnipaque 240 Mg/ml) 30 ml 1X ONCE PO ; Start 04/08/17 at 14:45; Stop 04/08/17 at 14:49; Status DC Acetaminophen (Tylenol) 500 mg PRN Q8HRS PRN PO PAIN; Start 04/08/17 at 17:15 Doxazosin Mesylate (Cardura) 1 mg QHS PO Last administered on 04/08/17 20:44 ; Start 04/08/17 at 21:00 Lisinopril (Prinivil) 40 mg DAILY PO Last administered on 04/09/17 08:47; Start 04/09/17 at 09:00 Multivitamins (Thera M Plus) 1 tab DAILY PO Last administered on 04/09/17 08: 47; Start 04/09/17 at 09:00 Nifedipine (Procardia Xl) 90 mg DAILY PO Last administered on 04/09/17 08:48 ; Start 04/09/17 at 09:00 Hydrochlorothiazide (Hydrodiuril) 50 mg DAILY PO Last administered on 08:47; Start 04/09/17 at 09:00 Zolpidem Tartrate (Ambien) 5 mg PRN QHS PRN PO INSOMNIA Last administered on t 20:44; Start 04/08/17 at 17:30 Active Scripts Active Colace (Docusate Sodium) 100 Mg Capsule 100 Mg PO DAILY Reported Miralax (Polyethylene Glycol 3350) 17 Gm Powd.pack 1 Packet PO DAILY Tylenol (Acetaminophen) 325 Mg Tablet 500 Mg PO PRN Multivitamins (Multivitamin) 1 Each Tablet 1 Tab PO DAILY Aspirin 81 Mg Tab.chew 1 Tab PO DAILY Potassium Chloride 10 Meq Tablet.er 20 Meq PO Doxazosin Mesylate 2 Mg Tablet 1 Mg PO HS Simvastatin 20 Mg Tablet 1 Tab PO QHS Lisinopril-Hctz 20-25 Mg Tab (Lisinopril/Hydrochlorothiazide) 1 Each Tablet 2 Tab PO DAILY Nifedipine Er (Nifedipine) 60 Mg Tablet.er 90 Mg PO DAILY Vitals/I & O Vital Sign - Last 24 Hours 04/08/17 04/08/17 04/08/17 04/08/17 19:00 19:50 20:44 23:00 Temp 98.1 98.1 98.1 98.1 Pulse 62 62 53 Resp 18 16 B/P (MAP) 148/71 (96) 148/71 158/85 (109) Pulse Ox 93 94 O2 Delivery Room Air Room Air Room Air O2 Flow Rate 3.0 04/09/17 04/09/17 04/09/17 04/09/17 03:00 07:00 08:00 08:47 Temp 98.1 98.1 98.1 98.1 Pulse 69 69 64 Resp 17 B/P (MAP) 158/63 (94) 163/82 (109) 166/83 Pulse Ox 95 96 O2 Delivery Room Air Room Air Room Air 04/09/17 04/09/17 04/09/17 08:48 11:00 15:00 Temp 98.1 98.4 98.1 98.4 Pulse 64 61 67 Resp 18 B/P (MAP) 166/83 110/90 (97) 117/87 (97) Pulse Ox 92 93 O2 Delivery Room Air Room Air Intake and Output 04/08/17 04/08/17 04/09/17 14:59 22:59 06:59 Intake Total 2200 ml 1800 ml Balance 2200 ml 1800 ml Problem List Problems Medical Problems: (1) Rectal bleeding Status: Acute (2) Rectal mass Status: Acute Assessment Rectal mass- with bleeding, most likely adenocarcinoma, oncology and radiation input noted as well as surgery, await MRI results, CPM EBONY CHÁVEZ MD Apr 09, 2017 15:58
[2017-04-09] MEDS ORDERED: GADOBUTROL 10 MMOL/10 ML VIAL IV ONE (17:15)
--- NOTE | 2017-04-10 05:09 | CONS ---
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 He has just undergone colonoscopy and biopsy on 04/08/2017. He will complete his clinical staging with MRI of the pelvis later today. We were asked to see him regarding neoadjuvant radiation with chemotherapy followed by anticipated abdominoperineal resection. ICD 10: C20. HISTORY OF PRESENT ILLNESS: The patient is a 76-year-old gentleman who has noted a 1-2 month history of change in his stool pattern where he had new onset of constipation where the stool just would not initially come out and then was slow in coming out. He noted diminished diameter almost ribbon like stool during this time. He had no significant perineal or abdominal pain and no noted rectal bleeding at this time. He was seen in urgent care at which time two plain x-rays were done of the abdomen. Stool was seen and no other intervention was pursued. He was seen by his who is a cardiology nurse here. She did a rectal exam, noted mass at her fingertip, tissue came out during the rectal examination. During this time, he had modest bleeding. He was seen here in the Emergency Room and had a similar examination also with some bleeding. Following admission, he underwent colonoscopy by Dr. Duran on 04/08/2017. He saw internal hemorrhoids, rectal mass within 2 cm of the anal verge and sigmoid diverticulosis. Biopsies were obtained, which did confirm adenocarcinoma as noted to me by Dr. Loenides Sood from Pathology. Staging CT scan of the chest, abdomen and pelvis from 04/08/2017 revealed rectal mucosal thickening or mass compatible with rectal malignancy. There was a small right perirectal nodule consistent with chip metastasis. He also had evidence for previous prostatectomy. There were two tiny pulmonary nodules of undetermined significance. No evidence for pelvic adenopathy outside of the perirectal nodule. Liver was clear of metastatic disease. There was a large simple cyst in the left lobe of the liver as well as partially calcified gallstones noted. He currently is scheduled to have MRI of the pelvis for completion staging. During this time, he has had stable appetite with no weight loss and stable energy level. 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 PAST MEDICAL HISTORY: Remarkable for prostatectomy 10 years ago followed by his urologist, Dr. Marvin Mi for 10 years with a stable low PSA level by the patient's report. He does have persistent stress urinary incontinence, which may have been recently worse. He also has a history of hypertension, hyperlipidemia and hemorrhoidectomy in the past. FAMILY HISTORY: Father from testicular carcinoma. SOCIAL HISTORY: for the second time for 25 years. Three daughters and one son as well as two stepsons and two stepdaughters. Nonsmoker. Minimal drinker in the past. 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 Active with his 20 grandchildren. As noted above, active in his [employer]. His continues to work here shoe [employer] cas[employer] as a p.r.n. nurse and has worked here for many years. PHYSICAL EXAMINATION: GENERAL: Revealed a pleasant gentleman in no acute distress. HEENT: Unremarkable. LYMPH NODES: He had no palpable cervical or supraclavicular adenopathy. LUNGS: Clear. HEART: Regular. ABDOMEN: Revealed obesity, without hepatomegaly, masses or tenderness. EXTREMITIES: Reveal no clubbing, cyanosis or edema. RECTAL AND PERINEAL: Omitted at this time in light of his recent rectal exams and colonoscopy LABORATORY STUDIES: Baseline laboratory studies: Hemoglobin 15.2, white count 8700 and platelet count 251,000. Chemistry panel was within normal limits outside of glucose of 146 and creatinine 1.2. CEA was 3.2 SUMMARY: My impression is that of locally advanced adenocarcinoma of the distal rectum. His tumor is close to the anus. He has near certainty of perirectal adenopathy. Final staging is dependent on his MRI imaging. At this time, I do recommend the consideration of neoadjuvant perineal and pelvic radiation in combination with chemotherapy followed by abdominoperineal resection. He should undergo central line placement to assist in infusional chemotherapy and return here for simulation anticipating radiation could be initiated by 04/20/2017. I reviewed this recommendation in detail with the patient and his son. I reviewed this as well with Dr. Mccoy and Dr. Shafer. Thank you again for allowing us to participate in his evaluation. He will return to Dr. Mccoy on Wednesday the . We anticipate simulation to occur later that week with combined treatment to follow after the hol. JAIME ROSEN MD DR: RACHELE/domenico JOB#: [id number] / [id number] RIDGE Jackson MD, SCOTT MD MTDD
--- NOTE | 2017-04-12 14:03 | RAD ---
MRI OF THE ABDOMEN WITHOUT AND WITH CONTRAST MRI OF THE PELVIS WITHOUT AND WITH CONTRAST CLINICAL INDICATION: Rectal carcinoma. COMPARISON: CT from 04/08/2017. TECHNIQUE: Multisequence, multiplanar MRI of the pelvis was performed with and without intravenous contrast. Informed consent was obtained and there were no immediate complications. I CONTRAST: 9 cc of Gadavist FINDINGS: Pelvis without contrast: No free fluid. Pelvis with contrast: There is circumferential nodular wall thickening of the rectum demonstrating low T1/high T2 signal with postcontrast enhancement. Tumor Length: Approximately 4.5 cm . Lowest Extent of Tumor Distance from the Anal Verge: Approximately 3 cm. Involvement of the internal anal sphincter: No. The lowest extent of the tumor is approximately 3.3 cm from the top of the anal sphincter. Maximal Rectal Circumference Involved by Tumor: Greater than 270 degrees of involvement of the rectal circumference. Wall Invasion: Linear strands of low T1/high T2 enhancing signal noted in the perirectal fat suggesting wall invasion and possible perirectal extension. Distance to Mesorectal Fascia (circumferential resection margin/CRM): Less than 1 cm. Relationship to Peritoneal Reflection: Below Perirectal Nodes: Multiple perirectal lymph nodes noted. Index lymph nodes as follows: 0.7 mm right posterolateral mesorectal fascia lymph node (series 4 image 24). 0.5 cm left lateral mesorectal fascia lymph node (series 4 image 22). Pelvic sidewall nodes/extramesorectal nodes: 0.9 cm right anterolateral extra-mesorectal fascia lymph node (series 4 image 23). 2.4 x 2.1 cm T2 hyperintense/T1 hypointense nonenhancing lesion seen along the right external iliac chain, previously measuring 2.7 x 2[address] from 2009 most likely lymphoepithelial cyst. Other Pelvic Findings: Bladder is within normal limits. Prostate and seminal vesicles are not visualized left surgically absent. Small fat-containing bilateral, left greater than right internal hernia. There are no destructive osseous lesions. IMPRESSION: Circumferential nodular wall thickening of the rectum as described above with mesorectal and extra mesorectal fascial lymph nodes compatible with provided history of rectal cancer.
== END 2017-04-09 18:15 | disposition home or self-care (01) | DRG 376 ==
LOC: ER 20:51 → 5 NORTH 22:30
PROVIDERS: ADMIT Family Medicine; ATTEND Family Medicine
PROC: 0DBN8ZX Excision of Sigmoid Colon, Via Natural or Artificial Opening Endoscopic, Diagnostic (ICD-10-PCS; 2017-04-08)
PROC: 0DBP8ZX Excision of Rectum, Via Natural or Artificial Opening Endoscopic, Diagnostic (ICD-10-PCS; principal; 2017-04-08 15:00)
DX: C20 Malignant neoplasm of rectum (principal); K76.89 Other specified diseases of liver; E78.00 Pure hypercholesterolemia, unspecified; K57.30 Diverticulosis of large intestine without perforation or abscess without bleeding; E78.5 Hyperlipidemia, unspecified; K64.8 Other hemorrhoids; I10 Essential (primary) hypertension; K59.00 Constipation, unspecified; N39.3 Stress incontinence (female) (male); K80.20 Calculus of gallbladder without cholecystitis without obstruction; Z80.43 Family history of malignant neoplasm of testis; Z85.46 Personal history of malignant neoplasm of prostate
CPT/HCPCS: 36415; 71260; 72197; 74177; 80053; 82378; 85025; 85610; 88305; 96360; 96361; A9585; J2704; J7030; J7120; Q9967; 99285-25; J2001

== ENCOUNTER 2017-04-16 11:36 | Day surgery (SDC) | payer MEDICARE, OTHER ==
[~2017-04-16] VITALS: Ht 174 cm; Wt 100.7 kg
[~2017-04-16 11:36] MED LIST: ACET325T9 PO; ASPI-630 PO; DOCU-109 PO; DOXA2TAB2 PO; HEPARIN SODIUM 5,000 UNIT in IV NORMAL SALINE 500ML BAG 500 ML IRR ONE; HYDROmorphone 2 MG/ML VIAL IV PRN; IV RINGERS,LACTATED 1000ML 1,000 ML IV SCH; LIDOCAINE 1% PF 2 ML VIAL. ID PRN; LISI1TAB7 PO; MORPHINE SULFATE 2 MG/ML DISP.SYRIN. IV PRN; MULT1TAB52 PO; NIFE60TA14 PO; ONDANSETRON PF 4 MG/2 ML VIAL. IV PRN; POLY17PO29 PO; POTA10TA11 PO; PROCHLORPERAZINE 10 MG/2 ML VIAL. IV PRN; SIMV20TA3 PO; fentaNYL PF VIAL 100 MCG/2 ML VIAL IV PRN
[2017-04-16] MEDS ORDERED: LIDOCAINE 2% PF Vial for OR 5 ML VIAL. ONE (12:29)
[2017-04-16] MEDS ORDERED: PROPOFOL 20 ML IV ONE (12:29)
[2017-04-16] MEDS ORDERED: MIDAZOLAM HCL/PF 2 MG/2 ML VIAL. ONE (12:30)
[2017-04-16] MEDS ORDERED: NEOMY/BACITR/POLYMYXIN OINT PACKET. TP ONE (12:39)
[2017-04-16] MEDS ORDERED: BUPIVAC MPF-EPI 0.5%-1:200000 30 ML VIAL. ONE (12:39)
[2017-04-16] MEDS ORDERED: BUPIVACAINE MPF 0.5% 30 ML VIAL. ONE (12:39)
--- NOTE | 2017-04-16 13:59 | RAD ---
Indication: Port-A-Cath insertion. Time of exam 1344 hours. Correlation is made with prior study from 08/25/2004. Left chest wall port has tip overlying the SVC. The lungs are clear. There is no pneumothorax. No effusion is seen. Impression: Port-A-Cath placement. No pneumothorax is detected.
--- NOTE | 2017-04-16 14:27 | PDOC ---
BRIEF OPERATIVE NOTE Date: Apr 16, 2017 Pre-Op Diagnosis needs venous access for chemotherapy Post-Op Diagnosis same Procedure Performed placement of a left subclavian power port Surgeon Hollis Anesthesia Type: MAC, Local Blood Loss 5cc IV Fluid 600cc Specimens Obtained none Findings post procedure CR shows tip in SVC without evidence of a pneumothorax Complications none Operative Note Wk # [id number] RIDGE WATKINS MD Apr 16, 2017 14:27
--- NOTE | 2017-04-16 14:28 | DISCH ---
DISCHARGE INSTRUCTIONS Condition on Discharge Condition on Discharge: Stable Activity After Discharge Activity Instructions for Disc: Resume previous activity, Activity as tolerated , Avoid exertion Lifting Instructions after Dis: No heavy lifting Driving Instructions after Dis: Do not drive today Diet after Discharge Diet after Discharge: Regular Wound Incision Care Wound/Incision Care: Keep wound/cast CDI Other wound/incision instructi: august shower Wednesday Follow-Up Follow Up With: Hollis next week RIDGE WATKINS MD Apr 16, 2017 14:28
[2017-04-16] MEDS ORDERED: DOCU-109 PO (14:42)
[2017-04-16] MEDS ORDERED: HYDR-971 PO (14:42)
[2017-04-16 14:45] VITALS: BP 149/62
--- NOTE | 2017-04-16 15:06 | OP ---
DATE OF SURGERY: 04/16/2017 PREOPERATIVE DIAGNOSIS: Needs venous access for chemotherapy. POSTOPERATIVE DIAGNOSIS: Needs venous access for chemotherapy. PROCEDURE: Placement of a left subclavian PowerPort. SURGEON: Hector Watkins MD. ANESTHESIA: Local with sedation. BLOOD LOSS: 5 mL. IV FLUIDS: 600. INDICATIONS: The patient is a 76-year-old gentleman with recently diagnosed rectal carcinoma. He is brought for placement of a PowerPort to initiate neoadjuvant chemoradiation. OPERATIVE REPORT: The patient was brought to the operating suite and with IV sedation on board, the chest was prepped and draped in usual sterile fashion. We chose the left side for placement. A 0.5% Marcaine plain was infiltrated in the skin a fingerbreadth below the clavicle at the junction medial two-thirds to lateral third. Skin incision made and with the bed in Trendelenburg, the seeker needle was used to cannulate the subclavian vein. Flexible guidewire advanced under fluoroscopic observation into the superior vena cava. Table returned to level. Needle removed. Pocket incision infiltrated with 0.5% Marcaine with epinephrine, incised and developed with dissection. The catheter was then laid on the patient's chest and with fluoroscopy as a guide, cut to an appropriate length. The catheter was then tunneled from the insertion site to the pocket site where it was attached to the reservoir and flushed. The reservoir was seated into the pocket and the bed placed back in Trendelenburg position. Under fluoroscopic observation the dilators were passed over the wire. The wire was removed. The dilator was removed and the catheter was threaded to the sheath and the sheath was then removed. Table returned to level. There was good flow into and out of the catheter at completion of placement. Pocket incision closed with interrupted 3-0 Vicryl in subcutaneous tissue. Skin incisions closed with subcuticular 4-0 Monocryl and Steri-Strips. Prior to dressing the area, a final aspiration of the port revealed good return and easy flushing. Sterile dressing applied. Postop upright chest x-ray showed the tip of the catheter to reside in superior vena cava without evidence of pneumothorax. The patient tolerated the procedure well and was taken to postop area in stable condition. HECTOR WATKINS MD DR: LUIS E/domenico JOB#: [id number] / [id number] JACOB Carlos MD, JAY MD
[2017-04-21] MEDS ORDERED: FLUO1VIA8 IV (09:35)
== END 2017-04-16 15:18 | disposition home or self-care (01) ==
LOC: SURG 11:36
PROVIDERS: ATTEND Surgery
DX: C20 Malignant neoplasm of rectum (principal); Z45.2 Encounter for adjustment and management of vascular access device; E78.00 Pure hypercholesterolemia, unspecified; I10 Essential (primary) hypertension; E66.9 Obesity, unspecified; M19.91 Primary osteoarthritis, unspecified site; Z85.46 Personal history of malignant neoplasm of prostate; Z87.39 Personal history of other diseases of the musculoskeletal system and connective tissue; Z72.89 Other problems related to lifestyle; Z98.890 Other specified postprocedural states
CPT/HCPCS: 36561; 71010; C1769; C1788; J0690; J1644; J2250; J2704; J3490; J7040; 36556; J2001

== ENCOUNTER → 2017-08-02 | Outpatient (CLI) | payer MEDICARE, OTHER ==
[~2017-08-02] MED LIST changes: -ACET325T9 PO; -ASPI-630 PO; -DOCU-109 PO; -DOXA2TAB2 PO; +HEPARIN PF 500 UNIT/5 ML DISP.SYRIN. IV; -HEPARIN SODIUM 5,000 UNIT in IV NORMAL SALINE 500ML BAG 500 ML IRR ONE; -HYDROmorphone 2 MG/ML VIAL IV PRN; -IV RINGERS,LACTATED 1000ML 1,000 ML IV SCH; -LIDOCAINE 1% PF 2 ML VIAL. ID PRN; -LISI1TAB7 PO; -MORPHINE SULFATE 2 MG/ML DISP.SYRIN. IV PRN; -MULT1TAB52 PO; -NIFE60TA14 PO; -ONDANSETRON PF 4 MG/2 ML VIAL. IV PRN; -POLY17PO29 PO; -POTA10TA11 PO; -PROCHLORPERAZINE 10 MG/2 ML VIAL. IV PRN; -SIMV20TA3 PO; -fentaNYL PF VIAL 100 MCG/2 ML VIAL IV PRN
[2017-08-02] MEDS: HEPARIN PF 500 UNIT/5 ML DISP.SYRIN. IV (09:30)
[2017-08-02 09:46] LABS: ADD MAN DIFF? NO
[2017-08-02 09:53] LABS: BASO % 1 % (0-3); EOS # 0.3 x10^3/uL (0.0-0.7); EOS % 4 % (0-3); HEMATOCRIT 40.4 % (39.0-53.0); HEMOGLOBIN 13.9 g/dL (13.0-17.5); LYMPH # 0.3 x10^3/uL (1.0-4.8); LYMPH % 4 % (24-48); MEAN CORPUSCULAR HEMOGLOBIN 35 pg (25-35); MEAN CORPUSCULAR HGB CONC 35 g/dL (31-37); MEAN CORPUSCULAR VOLUME 100 fL (79-100); MONO # 0.6 x10^3/uL (0.0-1.1); MONO % 8 % (0-9); NEUT # 6.2 x10^3uL (1.8-7.7); NEUT % 83 % (31-73); PLATELET COUNT 190 x10^3/uL (140-400); RED BLOOD COUNT 4.02 x10^6/uL (4.30-5.70); WHITE BLOOD COUNT 7.5 x10^3/uL (4.0-11.0)
[2017-08-02 10:15] LABS: ALBUMIN 3.4 g/dL (3.4-5.0); ALK PHOS 72 U/L (46-116); ALT (SGPT) 32 U/L (16-63); ANION GAP 5 (6-14); AST (SGOT) 20 U/L (15-37); BLOOD UREA NITROGEN 14 mg/dL (8-26); BUN/CREATININE RATIO 13 (6-20); CALCIUM 9.4 mg/dL (8.5-10.1); CARBON DIOXIDE 30 mmol/L (21-32); CHLORIDE 107 mmol/L (98-107); CREATININE 1.1 mg/dL (0.7-1.3); GFR 64.7; GLUCOSE 97 mg/dL (70-99); POTASSIUM 3.4 mmol/L (3.5-5.1); SODIUM 142 mmol/L (136-145); TOTAL BILIRUBIN 0.5 mg/dL (0.2-1.0); TOTAL PROTEIN 6.9 g/dL (6.4-8.2)
[2017-08-02 12:37] LABS: % BANDS 3 % (0-9); % EOS 1 % (0-5); % LYMPHS 4 % (24-48); % MONOS 6 % (0-10); % SEGS 86 % (35-66); ANISOCYTOSIS SLIGHT; PLT ESTIMATE ADEQUATE (ADEQUATE)
== END | disposition home or self-care (01) ==
LOC: SURGPAT 08:59
DX: C20 Malignant neoplasm of rectum (principal); I10 Essential (primary) hypertension; E78.00 Pure hypercholesterolemia, unspecified
CPT/HCPCS: 36415; 80053; 85007; 85025

== ENCOUNTER → 2018-03-30 | Day surgery (SDC) | payer MEDICARE, OTHER ==
[~2018-03-30] MED LIST changes: +ACET325T9 PO; +ASPI-630 PO; +DOCU-109 PO; +DOXA2TAB2 PO; +FLUO1VIA8 CONT INF; +GABA600T2 PO; -HEPARIN PF 500 UNIT/5 ML DISP.SYRIN. IV; +HEPARIN PF 500 UNIT/5 ML DISP.SYRIN. IV ONE; +HYDR-3164 PO; +HYDROmorphone 2 MG/ML VIAL IV PRN; +IV RINGERS,LACTATED 1000ML 1,000 ML IV SCH; +LIDOCAINE 1% PF 2 ML VIAL. ID PRN; +LISI1TAB5 PO; +LISI1TAB7 PO; +MORPHINE SULFATE 2 MG/ML VIAL. IV PRN; +MULT1TAB52 PO; +NIFE60TA14 PO; +ONDANSETRON PF 4 MG/2 ML VIAL. IV PRN; +POLY17PO29 PO; +POTA10TA11 PO; +PROCHLORPERAZINE 10 MG/2 ML VIAL. IV PRN; +PROPOFOL 20 ML IV ONE; +SIMV20TA3 PO; +TAMS0.4C97 PO; +fentaNYL PF VIAL 100 MCG/2 ML VIAL IV PRN
--- NOTE | 2018-03-30 08:46 | HP ---
ADMIT DATE: 03/30/2018 REASON: Surveillance for rectal cancer, status post diverting colostomy, radiation and chemotherapy. HISTORY OF PRESENT ILLNESS: A 77-year-old male with past medical history significant for hemorrhoidectomy, prostate cancer, hyperlipidemia, is seen one year out from the anterior perineal resection, diverting colostomy, has undergone radiation and chemotherapy and is here for surveillance exam. Bowel habits with the colostomy bag are tolerated. There has been no bleeding, otherwise been stable since the surgery. PAST MEDICAL HISTORY: Rectal cancer, status post diverting colostomy, hypertension, hyperlipidemia, prostate cancer, hemorrhoidectomy. ALLERGIES: None. MEDICATIONS: Include aspirin, doxazosin, gabapentin, lisinopril, hydrochlorothiazide, multivitamin, nifedipine, potassium and simvastatin. FAMILY AND SOCIAL HISTORY: Significant for testicular cancer in his father. SOCIAL HISTORY: He is an ex-smoker, social drinker. REVIEW OF SYSTEMS: As per records. PHYSICAL EXAMINATION: GENERAL: Reveals a well-nourished, well-developed male. VITAL SIGNS: Temperature 98.8, pulse 78, respirations 18. HEENT: Normocephalic and atraumatic. Pupils and extraocular muscles are not tested. Sclerae anicteric. NECK: Supple. LUNGS: Clear. CARDIOVASCULAR: Reveals an S1, S2 without S3, S4 or appreciable murmur. ABDOMEN: Reveals soft abdomen, normal bowel sounds without appreciable hepatosplenomegaly. Colostomy in left lower quadrant. EXTREMITIES: Reveal no cyanosis, clubbing or edema. IMPRESSION: Rectal cancer. Surveillance colonoscopy via colostomy is recommended today. Risks and benefits were discussed including the risk of hemorrhage and perforation and is willing to proceed. EBONY CHÁVEZ MD DR: ALEJANDRO/domenico JOB#: [id number] / [id number] [facility] RECORDS, MEDICAL
[2018-03-30 08:58] VITALS: BP 154/81
== END | disposition home or self-care (01) ==
LOC: ENDOS 06:58
PROVIDERS: ATTEND Internal Medicine Gastroenterology
DX: Z08 Encounter for follow-up examination after completed treatment for malignant neoplasm (principal); Z85.038 Personal history of other malignant neoplasm of large intestine; I10 Essential (primary) hypertension; E78.5 Hyperlipidemia, unspecified; Z87.891 Personal history of nicotine dependence; Z86.010 Personal history of colon polyps; M19.90 Unspecified osteoarthritis, unspecified site; Z90.79 Acquired absence of other genital organ(s); Z98.890 Other specified postprocedural states; Z87.442 Personal history of urinary calculi; Z72.89 Other problems related to lifestyle; Z85.46 Personal history of malignant neoplasm of prostate; Z79.82 Long term (current) use of aspirin; Z79.899 Other long term (current) drug therapy
CPT/HCPCS: 44388; J2704; 45378

== ENCOUNTER → 2018-04-08 | Outpatient (CLI) | payer MEDICARE, OTHER ==
[2018-03-30 08:58] VITALS: BP 154/81
[~2018-04-08] MED LIST changes: -HYDROmorphone 2 MG/ML VIAL IV PRN; +IOHEXOL 240 MG/ML 50ML VIAL. PO ONE; +IOHEXOL 300 MG/ML 100ML VIAL. IV ONE; -IV RINGERS,LACTATED 1000ML 1,000 ML IV SCH; -LIDOCAINE 1% PF 2 ML VIAL. ID PRN; -MORPHINE SULFATE 2 MG/ML VIAL. IV PRN; -ONDANSETRON PF 4 MG/2 ML VIAL. IV PRN; -PROCHLORPERAZINE 10 MG/2 ML VIAL. IV PRN; -PROPOFOL 20 ML IV ONE; -fentaNYL PF VIAL 100 MCG/2 ML VIAL IV PRN
--- NOTE | 2018-04-08 11:11 | RAD ---
PQRS Compliance statement: One or more of the following individualized dose reduction techniques were utilized for this examination: 1. Automated exposure control. 2. Adjustment of the mA and/or kV according to patient size. 3. Use of iterative reconstruction technique. Indication:RECTAL CA. Follow-up. TECHNIQUE: CT chest, abdomen and pelviswith IV contrast with multiplanar reformats. COMPARISON: Previous exam from 04/08/2017. FINDINGS: Left chest wall Chemo-Port is seen with its tip in the SVC. Heart is normal in size. No pericardial or pleural effusion. Clear neck base. No enlarged axillary, mediastinal or hilar adenopathy. Calcified subcarinal lymph lymph node is seen. Central airways are patent. Stable 3 mm nodular opacity in the right lower lobe (series 2 image 35). Stable mild scarring in the right lower lobe. Stable 3 mm nodule in the right middle lobe abutting right minor fissure (series 2 image 28). Stable 3 mm subpleural nodule in the left lower lobe (series 2 image 41). Stable subpleural nodular opacity in the left lateral upper lobe (series 2 image 20). 1 cm lucency is seen in the right second rib are seen before, nonspecific. Otherwise, no suspicious bony lesions in the chest. 2.4 x 2.4 cm stable well-circumscribed low attenuating lesion is seen in the segment 2 of the liver. 5.0 x 5.0 cm circumscribed low attenuating lesion is seen in segment 4B of the liver, previously 4.4 x 4.4 cm. Stable 6 mm low attenuating lesion in segment 4A and 4 mm lesion in segment 2 along the falciform ligament recess. Stable right hepatic dome lesion (series 4 image 9). Scattered calcified granulomata seen in the spleen. Status post cholecystectomy. Pancreas and adrenals are within normal limits. Simple cyst is seen in the inferior pole of the right kidney measuring 2.7 x 2.4 cm. Subcentimeter partially exophytic low attenuating lesion is seen in the interpolar left kidney likely another simple cyst. No nephrolithiasis or hydronephrosis. No enlarged retroperitoneal or pelvic adenopathy. 2.9 x 2.4 cm cortical scribed attenuating lesion is seen along the right external iliac vein, previously measuring 2.9 x 2.4 cm. Small fat-containing left inguinal hernia. Status post rectosigmoid colon resection with interval left lower quadrant ostomy. No bowel obstruction. Presacral soft tissue thickening is seen measuring 4.5 x 3.1 cm (series 4 image 78) is. Normal appendix. Urinary bladder is decompressed however shows no radiopaque stones. No suspicious bony lesion. Multilevel moderate degenerative disc disease is seen in the lumbar spine. IMPRESSION: 1. Multiple stable bilateral pulmonary nodules. Attention on follow-up. 2. 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 3. Interval resection of rectosigmoid colon with left lower quadrant ostomy. 4. Presacral soft tissue thickening may be secondary to postsurgical scarring although underlying residual or recurrent malignancy is not ruled out. Short-term follow-up recommended. Electronically signed by: Melquiades Ríos DO (04/08/2018 11:06 AM) [facility]
== END | disposition home or self-care (01) ==
LOC: CT 09:57
PROVIDERS: ATTEND Internal Medicine Hematology & Oncology
DX: C20 Malignant neoplasm of rectum (principal); J98.4 Other disorders of lung; N28.1 Cyst of kidney, acquired; K40.90 Unilateral inguinal hernia, without obstruction or gangrene, not specified as recurrent; M51.36 Other intervertebral disc degeneration, lumbar region; Z90.49 Acquired absence of other specified parts of digestive tract
CPT/HCPCS: 71260; 74177; Q9966; Q9967

== ENCOUNTER → 2018-07-07 | Outpatient (CLI) | payer MEDICARE, OTHER ==
[2018-03-30 08:58] VITALS: BP 154/81
[~2018-07-07] MED LIST changes: +CONTRAST GIVEN. MC PRN; -GABA600T2 PO; +GABA600T7 PO; -HEPARIN PF 500 UNIT/5 ML DISP.SYRIN. IV ONE
--- NOTE | 2018-07-07 14:12 | RAD ---
CT of the chest, abdomen, and pelvis compared to similar study dated April 08, 2018 for status post rectal cancer. TECHNIQUE: Contiguous helical 5 mm axial images are obtained from the thoracic inlet to the pelvic floor following administration of IV and oral contrast. Sagittal and coronal reformations are evaluated. FINDINGS: Within the superior segment of the right lower lobe there is a calcified granuloma which is stable. Within the anterior aspect of the right middle lobe on axial image #38, there is a stable 5 mm soft tissue nodule. Similar stable 5 mm soft tissue nodule seen in the peripheral aspect of the left upper lobe on axial image #25. No new or suspicious lung nodules or masses are seen. Early fibrotic interstitial changes are seen in the medial lung bases. These are stable. No suspicious mediastinal, hilar, or axillary lymphadenopathy is evident. Within the liver, there is redemonstration of multiple cystic masses which are all stable and unchanged. These appear simple in character and are likely benign hepatic cysts or bile duct hamartomas. No suspicious liver masses are seen. There has been a prior cholecystectomy. The pancreas, spleen, bilateral adrenal glands are grossly unremarkable. Exophytic from the anterior inferior aspect of the right kidney is a 2.8 cm simple cyst. Kidneys are otherwise unremarkable. o suspicious mesenteric or retroperitoneal lymphadenopathy is seen. In the right hemipelvis, adjacent to the anterior acetabulum and just posterior to the right external iliac vein, there is a 2.7 cm circumscribed homogeneous low attenuation abnormality with Hounsfield units consistent with simple fluid. This is unchanged from the prior examination. No secondary signs of infection. This could reflect a small chronic postoperative seroma, hematoma, or lymphocele. Several bilateral inguinal lymph nodes are identified, none of which meet size criteria for definite pathologic enlargement. These are stable. Bulky presacral soft tissue thickening is stable and overall extent and appearance from the prior examination as well. Several phleboliths are seen. There is inhomogeneous opacification of large and small bowel with no gross abnormalities identified. No significant vascular abnormalities are seen. No suspicious osteoblastic or osteolytic bone lesions are evident. IMPRESSION: 1. Stable subcentimeter lung nodules, with no new or suspicious lung nodules or masses. 2. Multiple stable cystic hepatic lesions most likely benign hepatic cysts or bile duct hamartomas. 3. Stable simple renal cyst. 4. 2.7 cm right pelvic sidewall fluid collection, stable, without adjacent inflammatory changes or signs of infection. Postoperative seroma, hematoma, or lymphocele is suspected. 5. Stable extent and appearance of presacral soft tissue thickening, possibly due to posttreatment change. Continued surveillance of this region is warranted, as underlying malignancy cannot excluded. 6. Multiple bilateral inguinal lymph nodes, all of which are stable and none of which meet size criteria for definite pathologic enlargement. PQRS Compliance Statement: One or more of the following individualized dose reduction techniques were utilized for this examination: 1. Automated exposure control 2. Adjustment of the mA and/or kV according to patient size 3. Use of iterative reconstruction technique Electronically signed by: Justin Howard MD (07/07/2018 2:08 PM) [id number]
== END | disposition home or self-care (01) ==
LOC: CT 08:22
PROVIDERS: ATTEND Internal Medicine Hematology & Oncology
DX: C20 Malignant neoplasm of rectum (principal); R91.8 Other nonspecific abnormal finding of lung field; J84.10 Pulmonary fibrosis, unspecified; K76.89 Other specified diseases of liver; N28.1 Cyst of kidney, acquired; Z90.49 Acquired absence of other specified parts of digestive tract
CPT/HCPCS: 71260; 74177; Q9966; Q9967

== ENCOUNTER → 2019-01-25 | Outpatient (CLI) | payer MEDICARE, OTHER ==
[2018-03-30 08:58] VITALS: BP 154/81
[~2019-01-25] MED LIST changes: -CONTRAST GIVEN. MC PRN; +LISI1TAB19 PO; +LISI1TAB20 PO; -LISI1TAB5 PO; -LISI1TAB7 PO
--- NOTE | 2019-01-25 18:56 | RAD ---
Examination: CT CHEST ABD PELVIS W/CONTRAST History: Rectal carcinoma Comparison/Correlation: 07/07/2018 CT chest abdomen and pelvis with contrast Findings: Axial images of chest, abdomen, and pelvis were obtained without contrast. Sagittal and coronal reformatted images were provided. Oral contrast was utilized. A few bilateral pulmonary nodules are present without significant change in size. These measure less than 0.5 cm diameter. No new pulmonary nodules or masses identified. No infiltrates interval. Minimal right basilar atelectasis is present. No enlarged thoracic lymph nodes. Hepatic cysts are again identified. Cholecystectomy noted. Spleen is unremarkable. Pancreas is normal. Adrenal glands are unremarkable. Kidneys are normal. Right lower pole cyst is present. Gastric diverticulum again seen at the posterior aspect of the cardia level. Left lower quadrant ostomy is noted with herniation of omental fat. No bowel obstruction. Appendix is normal. Presacral soft tissue thickening again seen. Left pelvic sidewall fluid density structure is again seen measuring up to 2.7 cm x 2.1 cm. It may be minimally decreased in the interval. No new enlarged abdominal or pelvic lymph nodes. Left gluteus jenise lipoma is again seen. Urinary bladder is decompressed. Left inguinal hernia contains omental fat. Multilevel disc space narrowing of the lumbar spine is present. Impression: No new mass or enlarged lymph nodes identified involving the chest, abdomen, or pelvis. No sniffing change in pulmonary nodules. Presacral soft tissue density is similar to the prior exam. PQRS Compliance Statement: One or more of the following individualized dose reduction techniques were utilized for this examination: 1. Automated exposure control 2. Adjustment of the mA and/or kV according to patient size 3. Use of iterative reconstruction technique Electronically signed by: Salvatore Lara MD (01/25/2019 6:53 PM) [facility]
== END | disposition home or self-care (01) ==
LOC: CT 07:39
PROVIDERS: ATTEND Internal Medicine Hematology & Oncology
DX: C20 Malignant neoplasm of rectum (principal); K76.89 Other specified diseases of liver; K31.4 Gastric diverticulum; K40.90 Unilateral inguinal hernia, without obstruction or gangrene, not specified as recurrent; Z90.49 Acquired absence of other specified parts of digestive tract
CPT/HCPCS: 71260; 74177; Q9966; Q9967

== ENCOUNTER → 2020-01-23 | Outpatient (CLI) | payer MEDICARE, OTHER ==
[2018-03-30 08:58] VITALS: BP 154/81
[~2020-01-23] MED LIST changes: -LISI1TAB19 PO; +LISI1TAB37 PO; +MULT-445 PO; -MULT1TAB52 PO; +SIMV20TA18 PO; -SIMV20TA3 PO
--- NOTE | 2020-01-23 13:42 | RAD ---
CT of the chest, abdomen, and pelvis compared to similar exam dated January 25, 2019 for rectal cancer, prostate cancer. TECHNIQUE: Contiguous axial CT images are obtained through the chest, abdomen, and pelvis following administration of IV and oral contrast. Sagittal and coronal reformations are evaluated. CHEST: There is stable scarring the right lung base. There are stable subcentimeter pulmonary nodules on the right, on series 2 axial images 29, 40, and 26. On the left, there are stable subcentimeter pulmonary nodules on axial images 42, 44, and 21. No new lung nodules are identified. Calcified adenopathy in the mediastinum is stable. No new or suspicious mediastinal, hilar, or axillary adenopathy is seen. Heart size remains mildly enlarged but overall is stable. Coronary artery calcification are present in multiple distributions. No suspicious osteoblastic or osteolytic bone lesions are identified. Abdomen/pelvis: A few hepatic cysts are evident and are stable. No new hepatic parenchymal abnormalities. Granulomatous changes in the spleen are again seen. Gallbladder surgically absent. Pancreas is unremarkable. Bilateral adrenal glands are normal. There is redemonstration of a gastric diverticulum, grossly unchanged. No significant abnormalities of either kidney. No free or loculated fluid collections. Left colostomy is noted. No gross abnormalities the visualized large and small bowel. No suspicious mesenteric or retroperitoneal adenopathy. Right pelvic sidewall fluid collection is stable, possibly a small mesenteric cyst or benign postsurgical lymphocele. There is redemonstration of irregular thickening of the soft tissues in the presacral space extending the serosal surface of the loop of nondistended small bowel. The overall extent and appearance of the soft tissue thickening is stable, and scar tissue is a favored etiology. No suspicious osteoblastic or osteolytic bone lesions. IMPRESSION: 1. Multiple subcentimeter stable pulmonary nodules, with no new or suspicious lung nodules or new or suspicious adenopathy. 2. Stable appearance of presacral soft tissue thickening. Scar tissue is the favored consideration. 3. Stable gastric diverticulum. 4. Stable pelvic sidewall fluid collection, possibly a congenital mesenteric cyst or postsurgical lymphocele para PQRS Compliance Statement: One or more of the following individualized dose reduction techniques were utilized for this examination: 1. Automated exposure control 2. Adjustment of the mA and/or kV according to patient size 3. Use of iterative reconstruction technique Electronically signed by: Justin Howard MD (01/23/2020 1:39 PM) [id number]
== END | disposition home or self-care (01) ==
LOC: CT 08:40
PROVIDERS: ATTEND Internal Medicine Hematology & Oncology
DX: C20 Malignant neoplasm of rectum (principal); K76.89 Other specified diseases of liver; L92.8 Other granulomatous disorders of the skin and subcutaneous tissue; I25.10 Atherosclerotic heart disease of native coronary artery without angina pectoris; I51.7 Cardiomegaly; R91.1 Solitary pulmonary nodule; K31.4 Gastric diverticulum; Z90.49 Acquired absence of other specified parts of digestive tract; Z93.3 Colostomy status
CPT/HCPCS: 71260; 74177; Q9966; Q9967